=== PATIENT | male | born 1985 | race Caucasian/White ===

== ENCOUNTER 2017-07-24 15:46 | Inpatient (IN) | payer OTHER ==
--- NOTE | 2017-07-24 17:33 | HP ---
COWS - Scale Resting Pulse: 0= [place] 80 or Below Sweatin= Chills/Flushing Restless Observation: 0= Sits Still Pupil Size: 0= Normal to Room Light Bone or Joint Aches: 2= Severe Diffuse Aches Runny Nose/ Eye Tearin= Runny Nose/Eyes GI Upset > 30mins: 2= Nausea/Diarrhea Tremor Observation: 2= Slight Tremor Visible Yawning Observation: 0= None Anxiety or Irritability: 2=Irritable/Anxious Goose Flesh Skin: 3=Piloerection COWS Score: 14 Admission ROS S - HPI Chief Complaint: withdrawal sx Allergies/Adverse Reactions: Allergies Allergy/AdvReac Type Severity Reaction Status Date / Time No Known Allergies Allergy Verified 07/24/17 17:34 History of Present Illness: 32 years old male with long history of heroin nicotine dependence has bipolar ii is admitted to detox Exam Limitations: No Limitations - Ebola screening Have you traveled outside of the country in the last 21 days: No Have you had contact with anyone from an Ebola affected area: No Have you been sick,other than usual withdrawal symptoms: No Do you have a fever: No - Review of Systems Constitutional: Changes in sleep, Weight Stable EENT: reports: No Symptoms Reported Respiratory: reports: No Symptoms reported Cardiac: reports: No Symptoms Reported GI: reports: Nausea, Poor Fluid Intake, Abdominal cramping : reports: No Symptoms Reported Musculoskeletal: reports: Back Pain, Joint Pain, Muscle Pain, Neck Pain Integumentary: reports: No Symptoms Reported Neuro: reports: Tremors Endocrine: reports: No Symptoms Reported Hematology: reports: No Symptoms Reported Psychiatric: reports: Judgement Intact, Orientated x3, Anxious, Depressed Other Systems: Reviewed and Negative Patient History - Patient Medical History Hx Anemia: No Hx Asthma: No Hx Chronic Obstructive Pulmonary Disease (COPD): No Hx Cancer: No Hx Cardiac Disorders: No Hx Congestive Heart Failure: No Hx Hypertension: No Hx Hypercholesterolemia: No Hx Pacemaker: No HX Cerebrovascular Accident: No Hx Seizures: No Hx Dementia: No Hx Diabetes: No Hx Gastrointestinal Disorders: No Hx Liver Disease: No Hx Genitourinary Disorders: No Hx Sexually Transmitted Disorders: No Hx Renal Disease (ESRD): No Hx Thyroid Disease: No Hx Human Immunodeficiency Virus (HIV): No Hx Hepatitis C: No Hx Depression: No Hx Suicide Attempt: No Hx Bipolar Disorder: Yes Hx Schizophrenia: No - Patient Surgical History Past Surgical History: Yes Hx Neurologic Surgery: No Hx Cataract Extraction: No Hx Cardiac Surgery: No Hx Lung Surgery: No Hx Breast Surgery: No Hx Breast Biopsy: No Hx Abdominal Surgery: No Hx Appendectomy: No Hx Cholecystectomy: No Hx Genitourinary Surgery: No Hx Orthopedic Surgery: Yes Other Surgical History: nasal bridge fx 2014 Anesthesia Reaction: No - PPD History Previous Implant?: Yes Documented Results: Negative w/o proof Implanted On Prior [facility] Admission?: No PPD to be Administered?: Yes - Smoking Cessation Smoking history: Current every day smoker Have you smoked in the past 12 months: Yes Aproximately how many cigarettes per day: 10 Cigars Per Day: 0 Hx Chewing Tobacco Use: No Initiated information on smoking cessation: Yes 'Breaking Loose' booklet given: 07/24/17 - Substance & Tx. History Hx Alcohol Use: No Hx Substance Use: Yes Substance Use Type: Heroin, Opiates, Tranquilizers - Substances Abused Benzodiazepine (Klonopin) Route: Oral Frequency: Daily Amount used: 4 mg Age of first use: 32 Date of Last Use: 07/24/17 Family Disease History - Family Disease History Family Disease History: Other: Father (seizure), Brother (no brother), Sister Admission Physical Exam S - Physical General Appearance: Yes: Nourished, Appropriately Dressed, Mild Distress, Tremorous, Irritable, Sweating, Anxious HEENTM: Yes: Normal ENT Inspection, Normocephalic, Normal Voice Respiratory: Yes: Chest Non-Tender, Lungs Clear, Normal Breath Sounds, No Respiratory Distress, No Accessory Muscle Use Neck: Yes: Supple, Trachea in good position Breast: Yes: Breasts Symetrical Cardiology: Yes: Regular Rhythm, S1, S2, Bradycardia Abdominal: Yes: Normal Bowel Sounds, Non Tender, Soft Genitourinary: Yes: Within Normal Limits Back: Yes: Normal Inspection Musculoskeletal: Yes: full range of Motion, Gait Steady, Back pain, Muscle Pain Extremities: Yes: Normal Inspection, Normal Range of Motion, Non-Tender, Tremors Neurological: Yes: Fully Oriented, Alert, Motor Strength 5/5, Normal Response, Depressed Affect Integumentary: Yes: Warm Lymphatic: Yes: Within Normal Limits - Diagnostic (1) Opioid dependence with withdrawal Current Visit: Yes Status: Acute (2) Nicotine dependence Current Visit: Yes Status: Acute Qualifiers: Nicotine product type: cigarettes Substance use status: in withdrawal Qualified Code(s): F17.213 - Nicotine dependence, cigarettes, with withdrawal (3) Muscle spasm Current Visit: Yes Status: Chronic Cleared for Admission [facility] - Detox or Rehab [facility] Level of Care: Medically Managed Detox Regimen/Protocol: Methadone Vital Signs - Vital Signs Vital Signs Refused: No Temperature: 97.1 F Temperature Source: Oral Pulse Rate: 56 Respiratory Rate: 20 Blood Pressure: 102/58 BP Location: Left Arm Blood Pressure Position: Sitting - Height Height: 6 ft - Weight Weight: 197 lb Weight Measurement Method: Standing Scale Body Mass Index (BMI): 26.7 - Bowel Function Bowel Movement: No Urine Drug Screen - Control Is Test Valid: Yes - Results Drug Screen Negative: No Urine Drug Screen Results: OPI-Opiates, BZO-Benzodiazepines, MTD-Methadone, TCA- Tricyclic Antidepress
[2017-07-24] MEDS ORDERED: MAGNESIUM CITRATE 300 ML BOTTLE PO PRN (17:36)
[2017-07-24] MEDS ORDERED: MAGNESIUM HYDROX 2400MG/30ML ORAL SUSPENSION 30 ML CUP PO PRN (17:36)
[2017-07-24] MEDS ORDERED: ACETAMINOPHEN 325 MG TABLET (FP) PO PRN (17:36)
[2017-07-24] MEDS ORDERED: NICOTINE 14 MG/24 HOURS TOPICAL PATCH TD PRN (17:36)
[2017-07-24] MEDS ORDERED: P-EPHED 60MG/TRIPROLIDI 2.5MG TABLET PO PRN (17:36)
[2017-07-24] MEDS ORDERED: MAG HYDROX/AL HYDROX/SIMETH 30 ML UNIT-DOSE CUP PO PRN (17:36)
[2017-07-24] MEDS ORDERED: guaiFENesin/D-METHORPHAN HB 10 ML UNIT-DOSE CUPS PO PRN (17:36)
[2017-07-24] MEDS ORDERED: NICOTINE POLACRILEX 2 MG GUM BUC PRN (17:36)
[2017-07-24] MEDS ORDERED: METHADONE HCL 10 MG TABLET (FOR DETOX USE ONLY) PO ONE ×2 (17:36→23:00)
[2017-07-24] MEDS ORDERED: MENTHOL/PHENOL 1 EACH UD MM PRN (17:36)
[2017-07-24] MEDS ORDERED: LOPERAMIDE HCL 2 MG CAPSULE PO PRN (17:36)
[2017-07-24 17:55] VITALS: BMI 26.7
[2017-07-24] MEDS ORDERED: METHADONE HCL 10 MG TABLET (FOR DETOX USE ONLY) ONE (21:46)
[2017-07-25] MEDS: THIAMINE HCL 100 MG TABLET (FP) PO SCH ×2 (00:17→22:16)
[2017-07-25] MEDS ORDERED: METHADONE HCL 10 MG TABLET (FOR DETOX USE ONLY) PO ONE (10:00)
[2017-07-25 10:14] LABS: MCH 27.9 pg (25.7-33.7); MCHC 32.5 g/dl (32.0-35.9); MEAN CELL VOLUME 85.7 fl (80-96); MEAN PLT VOLUME 8.8 fl (7.5-11.1); PLATELET COUNT 244 K/MM3 (134-434); RDW 15.5 % (11.9-15.9); WHITE BLOOD COUNT 7.1 K/mm3 (4.0-10.0)
[2017-07-25] MEDS: PRENATAL VITAMINS W/ FOLIC ACID TABLET (FP) PO SCH (10:33)
[2017-07-25] MEDS: diazePAM 5 MG TABLET PO PRN ×3 (10:33→22:16)
[2017-07-25 11:13] LABS: ALBUMIN 3.4 g/dl (3.4-5.0); ANION GAP 9 (8-16); BILIRUBIN,TOTAL 0.2 mg/dL (0.2-1.0); CALCIUM 8.3 mg/dL (8.5-10.1); CO2 25 mmol/L (21-32); CREATININE 1.1 mg/dL (0.7-1.3); GLUCOSE,RANDOM 96 mg/dL (74-106); SGOT/AST 15 U/L (15-37); SGPT/ALT 28 U/L (12-78)
[2017-07-25 11:14] LABS: ALK PHOS 107 U/L (45-117); TOT PROT 6.8 g/dl (6.4-8.2)
--- NOTE | 2017-07-25 13:47 | PN ---
[facility] COWS - Scale Resting Pulse: 0= [place] 80 or Below Sweatin= Chills/Flushing Restless Observation: 3= Extraneous Movement Pupil Size: 1= Pupils >than Normal Bone or Joint Aches: 2= Severe Diffuse Aches Runny Nose/ Eye Tearin= Runny Nose/Eyes GI Upset > 30mins: 2= Nausea/Diarrhea Tremor Observation of Outstretched Hands: 2= Slight Tremor Visible Yawning Observation: 1= 1-2x During Session Anxiety or Irritability: 2=Irritable/Anxious Goose Flesh Skin: 0=Smooth Skin COWS Score: 16 S Progress Note (SOAP) Subjective: alert,irritable,anxious,interrupted sleep,tremor,pain in the body and back Objective: 07/25/17 13:43 Vital Signs Temperature 97.0 F L 07/25/17 10:32 Pulse Rate 44 L 07/25/17 10:32 Respiratory Rate 18 07/25/17 10:32 Blood Pressure 92/52 07/25/17 10:32 O2 Sat by Pulse Oximetry (%) ekg sinus bradycadia 31/min repeat ekg on 07/25/17 sinus bradycardia 37/min no chest pain,no sob,no dizziness Assessment: 07/25/17 13:45 Laboratory Last Values WBC 7.1 K/mm3 (4.0-10.0) 07/25/17 07:40 RBC 4.80 M/mm3 (4.00-5.60) 07/25/17 07:40 Hgb 13.4 GM/dL (11.7-16.9) 07/25/17 07:40 Hct 41.1 % (35.4-49) 07/25/17 07:40 MCV 85.7 fl (80-96) 07/25/17 07:40 MCH 27.9 pg (25.7-33.7) 07/25/17 07:40 MCHC 32.5 g/dl (32.0-35.9) 07/25/17 07:40 RDW 15.5 % (11.9-15.9) 07/25/17 07:40 Plt Count 244 K/MM3 (134-434) 07/25/17 07:40 MPV 8.8 fl (7.5-11.1) 07/25/17 07:40 Sodium 143 mmol/L (136-145) 07/25/17 07:40 Potassium 4.5 mmol/L (3.5-5.1) 07/25/17 07:40 Chloride 109 mmol/L (98-107) H 07/25/17 07:40 Carbon Dioxide 25 mmol/L (21-32) 07/25/17 07:40 Anion Gap 9 (8-16) 07/25/17 07:40 BUN 13 mg/dL (7-18) 07/25/17 07:40 Creatinine 1.1 mg/dL (0.7-1.3) 07/25/17 07:40 Creat Clearance w eGFR > 60 (>60) 07/25/17 07:40 Random Glucose 96 mg/dL (74-106) 07/25/17 07:40 Calcium 8.3 mg/dL (8.5-10.1) L 07/25/17 07:40 Total Bilirubin 0.2 mg/dL (0.2-1.0) 07/25/17 07:40 AST 15 U/L (15-37) 07/25/17 07:40 ALT 28 U/L (12-78) 07/25/17 07:40 Alkaline Phosphatase 107 U/L (45-117) 07/25/17 07:40 Total Protein 6.8 g/dl (6.4-8.2) 07/25/17 07:40 Albumin 3.4 g/dl (3.4-5.0) 07/25/17 07:40 RPR Titer Nonreactive (NONREACTIVE) 07/25/17 07:40 07/25/17 13:46 withdrawal symptom Plan: continue detox,monitoring of bradycardia,vital signs monitoring
--- NOTE | 2017-07-25 14:02 | CONSULT ---
[facility] Psychiatric Consult - Data Date of interview: 07/25/17 Admission source: [facility] Identifying data: First admission to [facility] for this 32 y/o [place]-born male seeking detoxification treatment for opioid and benzodiazepine dependence.Patient is single without children,domiciled,unemployed and supported by his relatives. Substance Abuse History: Discussed with patient in this interview.Mr Egan corroborates the following [facility] report. Smoking history: Current every day smoker. Have you smoked in the past 12 months: Yes. Aproximately how many cigarettes per day: 10. Cigars Per Day: 0. Hx Chewing Tobacco Use: No. Initiated information on smoking cessation: Yes. 'Breaking Loose' booklet given : 07/24/17. - Substance & Tx. History. Hx Alcohol Use: No. Hx Substance Use: Yes. Substance Use Type: Heroin, Opiates, Tranquilizers. - Substances Abused. Benzodiazepine (Klonopin). Route: Oral. Frequency: Daily. Amount used: 4 mg. Age of first use: 32. Date of Last Use: 07/24/17 Medical History: Patient endorses good general health. Psychiatric History: Patient reports a history of multiple psychiatric hospitalizations ([facility]).Diagnosed with Bipolar Disorder.Mr Egan indicates that he is currently under the care of Dr Aminta Wilkinson at a clinic in [facility].Prescribed zoloft 150 mg/day + trileptal 300 mg po bid (confirmed by pharmacy claims of 07/20/17 at [facility]).Patient denies history of suicide attempts. Physical/Sexual Abuse/Trauma History: Patient denies history of abuse. Additional Comment: Urine Drug Screen Results: OPI-Opiates, BZO-Benzodiazepines , MTD-Methadone, TCA-Tricyclic Antidepressant.Noted. Mental Status Exam - Mental Status Exam Alert and Oriented to: Time, Place, Person Cognitive Function: Good Patient Appearance: Unkempt, Disheveled Mood: Nervous, Withdrawn, Anxious Affect: Mood Congruent Patient Behavior: Fatigued, Talkative, Cooperative Speech Pattern: Clear, Excessive Voice Loudness: Normal Thought Process: Goal Oriented Thought Disorder: Bizarre Hallucinations: Denies Suicidal Ideation: Denies Homicidal Ideation: Denies Insight/Judgement: Poor Sleep: Well Appetite: Good Muscle strength/Tone: Normal Gait/Station: Normal Psychiatric Findings - Problem List ([place] 1, 2,3) (1) Opioid dependence with withdrawal Current Visit: Yes Status: Acute (2) Nicotine dependence Current Visit: Yes Status: Acute Qualifiers: Nicotine product type: cigarettes Substance use status: uncomplicated Qualified Code(s): F17.210 - Nicotine dependence, cigarettes, uncomplicated (3) Bipolar disorder Current Visit: Yes Status: Chronic - Initial Treatment Plan Initial Treatment Plan: Psychoeducation.Detoxification.Will hold sertraline and trileptal at this time.Reason : bradycardia.Patient is made aware of this careplan.Agrees.Observation.
[2017-07-25] MEDS: BACLOFEN 10 MG TABLET (FP) PO PRN ×2 (15:08→22:16)
--- NOTE | 2017-07-25 16:01 | EKG ---
Test Reason : Blood Pressure : / mmHG Vent. Rate : 037 BPM Atrial Rate : 037 BPM P-R Int : 194 ms QRS Dur : 102 ms QT Int : 494 ms P-R-T Axes : 043 046 039 degrees QTc Int : 387 ms MARKED SINUS BRADYCARDIA ABNORMAL ECG WHEN COMPARED WITH ECG OF 24-JUL-2017 21:34, NO SIGNIFICANT CHANGE WAS FOUND REPEAT EKG IF CLINICALLY INDICATED Confirmed by JUS DAO MD ([id number]) on 07/25/2017 4:00:41 PM Referred By: Confirmed By:JUS DAO MD
--- NOTE | 2017-07-25 16:30 | EKG ---
Test Reason : Blood Pressure : / mmHG Vent. Rate : 031 BPM Atrial Rate : 031 BPM P-R Int : 202 ms QRS Dur : 092 ms QT Int : 524 ms P-R-T Axes : 048 046 039 degrees QTc Int : 376 ms MARKED SINUS BRADYCARDIA POSSIBLE LEFT ATRIAL ENLARGEMENT U WAVES IN SELECTED LEADS, ELECTROLYTE AND OR METOBOLIC INBALANCE NEEDS TO BE EXCLUDED ABNORMAL ECG NO PREVIOUS ECGS AVAILABLE F/U EKG IS RECOMMENDED Confirmed by JUS DAO MD ([id number]) on 07/25/2017 4:30:15 PM Referred By: Confirmed By:JUS DAO MD
[2017-07-26] MEDS: diazePAM 5 MG TABLET PO PRN ×5 (05:41→22:13)
[2017-07-26] MEDS: BACLOFEN 10 MG TABLET (FP) PO PRN ×2 (09:03→17:39)
[2017-07-26] MEDS ORDERED: METHADONE HCL 5 MG TABLET (FOR DETOX USE ONLY) PO ONE (10:00)
[2017-07-26] MEDS: PRENATAL VITAMINS W/ FOLIC ACID TABLET (FP) PO SCH (10:20)
--- NOTE | 2017-07-26 10:44 | PN ---
S COWS - Scale Resting Pulse: 0= [place] 80 or Below Sweatin= Chills/Flushing Restless Observation: 3= Extraneous Movement Pupil Size: 1= Pupils >than Normal Bone or Joint Aches: 2= Severe Diffuse Aches Runny Nose/ Eye Tearin= Runny Nose/Eyes GI Upset > 30mins: 2= Nausea/Diarrhea Tremor Observation of Outstretched Hands: 2= Slight Tremor Visible Yawning Observation: 1= 1-2x During Session Anxiety or Irritability: 2=Irritable/Anxious Goose Flesh Skin: 0=Smooth Skin COWS Score: 16 S Progress Note (SOAP) Subjective: alert,irritable,anxious,interrupted sleep,tremor,pain in the body and back Objective: 07/26/17 10:42 Vital Signs Temperature 97 F L 07/26/17 10:28 Pulse Rate 65 07/26/17 10:28 Respiratory Rate 16 07/26/17 10:28 Blood Pressure 102/70 07/26/17 10:28 O2 Sat by Pulse Oximetry (%) 07/25/17 07:40 Sodium 143 Potassium 4.5 Chloride 109 H Carbon Dioxide 25 Anion Gap 9 BUN 13 Creatinine 1.1 07/26/17 10:43 Laboratory Last Values WBC 7.1 K/mm3 (4.0-10.0) 07/25/17 07:40 RBC 4.80 M/mm3 (4.00-5.60) 07/25/17 07:40 Hgb 13.4 GM/dL (11.7-16.9) 07/25/17 07:40 Hct 41.1 % (35.4-49) 07/25/17 07:40 MCV 85.7 fl (80-96) 07/25/17 07:40 MCH 27.9 pg (25.7-33.7) 07/25/17 07:40 MCHC 32.5 g/dl (32.0-35.9) 07/25/17 07:40 RDW 15.5 % (11.9-15.9) 07/25/17 07:40 Plt Count 244 K/MM3 (134-434) 07/25/17 07:40 MPV 8.8 fl (7.5-11.1) 07/25/17 07:40 Sodium 143 mmol/L (136-145) 07/25/17 07:40 Potassium 4.5 mmol/L (3.5-5.1) 07/25/17 07:40 Chloride 109 mmol/L (98-107) H 07/25/17 07:40 Carbon Dioxide 25 mmol/L (21-32) 07/25/17 07:40 Anion Gap 9 (8-16) 07/25/17 07:40 BUN 13 mg/dL (7-18) 07/25/17 07:40 Creatinine 1.1 mg/dL (0.7-1.3) 07/25/17 07:40 Creat Clearance w eGFR > 60 (>60) 07/25/17 07:40 Random Glucose 96 mg/dL (74-106) 07/25/17 07:40 Calcium 8.3 mg/dL (8.5-10.1) L 07/25/17 07:40 Total Bilirubin 0.2 mg/dL (0.2-1.0) 07/25/17 07:40 AST 15 U/L (15-37) 07/25/17 07:40 ALT 28 U/L (12-78) 07/25/17 07:40 Alkaline Phosphatase 107 U/L (45-117) 07/25/17 07:40 Total Protein 6.8 g/dl (6.4-8.2) 07/25/17 07:40 Albumin 3.4 g/dl (3.4-5.0) 07/25/17 07:40 RPR Titer Nonreactive (NONREACTIVE) 07/25/17 07:40 Assessment: 07/26/17 10:44 withdrawal symptom Plan: continue detox
[2017-07-26 11:29] LABS: URINE APPEARANCE CLEAR; URINE BILIRUBIN NEGATIVE (NEGATIVE); URINE BLOOD NEGATIVE (NEGATIVE); URINE COLOR LTYELLOW; URINE GLUCOSE (UA) NEGATIVE (NEGATIVE); URINE KETONE NEGATIVE (NEGATIVE); URINE NITRITE NEGATIVE (NEGATIVE); URINE PROTEIN NEGATIVE (NEGATIVE); URINE UROBILINOGEN NEGATIVE mg/dL (0.2-1.0)
[2017-07-26 18:19] LABS: URINE LEUK ESTERASE Negative (NEGATIVE)
[2017-07-26] MEDS: THIAMINE HCL 100 MG TABLET (FP) PO SCH (22:11)
[2017-07-27] MEDS: diazePAM 5 MG TABLET PO PRN ×3 (03:00→14:25)
[2017-07-27] MEDS ORDERED: METHADONE HCL 5 MG TABLET (FOR DETOX USE ONLY) PO ONE (10:00)
--- NOTE | 2017-07-27 10:04 | PN ---
[facility] Progress Note (SOAP) Subjective: irritable agitation I need my psych medication sweats my heart rate has always been on the slow side. 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 Objective: 07/27/17 10:02 Vital Signs Temperature 97.0 F L 07/27/17 09:42 Pulse Rate 41 L 07/27/17 09:42 Respiratory Rate 16 07/27/17 09:42 Blood Pressure 117/68 07/27/17 09:42 O2 Sat by Pulse Oximetry (%) Laboratory Tests 07/25/17 07/25/17 07/25/17 07:40 07:40 07:40 WBC 7.1 RBC 4.80 Hgb 13.4 Hct 41.1 MCV 85.7 MCH 27.9 MCHC 32.5 RDW 15.5 Plt Count 244 MPV 8.8 Sodium 143 Potassium 4.5 Chloride 109 H Carbon Dioxide 25 Anion Gap 9 BUN 13 Creatinine 1.1 Creat Clearance w eGFR > 60 Random Glucose 96 Calcium 8.3 L Total Bilirubin 0.2 AST 15 ALT 28 Alkaline Phosphatase 107 Total Protein 6.8 Albumin 3.4 Urine Color Urine Appearance Urine pH Ur Specific [place] Urine Protein Urine Glucose (UA) Urine Ketones Urine Blood Urine Nitrite Urine Bilirubin Urine Urobilinogen Ur Leukocyte Esterase RPR Titer Nonreactive 07/26/17 10:10 WBC RBC Hgb Hct MCV MCH MCHC RDW Plt Count MPV Sodium Potassium Chloride Carbon Dioxide Anion Gap BUN Creatinine Creat Clearance w eGFR Random Glucose Calcium Total Bilirubin AST ALT Alkaline Phosphatase Total Protein Albumin Urine Color Ltyellow Urine Appearance Clear Urine pH 6.0 Ur Specific [place] 1.011 Urine Protein Negative Urine Glucose (UA) Negative Urine Ketones Negative Urine Blood Negative Urine Nitrite Negative Urine Bilirubin Negative Urine Urobilinogen Negative Ur Leukocyte Esterase Negative RPR Titer aaox3 ambulating no acute distress Assessment: 07/27/17 10:03 withdrawal sx Plan: continue detox increase fluids psych re-evaluation orderd
[2017-07-27] MEDS: PRENATAL VITAMINS W/ FOLIC ACID TABLET (FP) PO SCH (10:09)
--- NOTE | 2017-07-27 13:12 | PN ---
Psychiatric Progress Note Vital Signs: Vital Signs Period Temp Pulse Resp BP Sys/Hwang Pulse Ox Last 24 Hr 96.4 F-98 F 41-97 16-20 106-128/62-76 Date of Session: 07/27/17 Chief Complaint:: " I want librium and my other medications." HPI: Day 4 of detoxification treatment for this patient addressing opioid dependence co-morbid with bipolar disorder.Psychiatric follow up is sought for renewal of psychotropic medications (zoloft + oxcarbazepine).These medications were held in view of bradycardia and hypotension. ROS: Unremarkable.No somatic complaints.Patient is alert,fully oriented, ambulatory and always visible on the unit. Current Medications: Active Medications Generic Name Dose Route Start Last Admin Trade Name Freq PRN Reason Stop Dose Admin Acetaminophen 650 mg 07/24/17 17:36 Tylenol - PO Q4H PRN FEVER OR PAIN Al Hydroxide/Mg Hydroxide 30 ml 07/24/17 17:36 Mylanta Oral Suspension - PO Q6H PRN DYSPEPSIA Baclofen 10 mg 07/24/17 17:49 07/26/17 17:39 Lioresal - PO 10 mg Q8H PRN Administration BACK PAIN Diazepam 10 mg 07/24/17 17:36 07/27/17 10:09 Valium - PO 07/27/17 17:35 10 mg Q4H PRN Administration WITHDRAWAL(CONT SUBST) Eucalyptus/Menthol/Phenol/Sorbitol 1 each 07/24/17 17:36 Cepastat Lozenge - MM Q4H PRN SORE THROAT Guaifenesin 10 ml 07/24/17 17:36 Robitussin Dm - PO Q6H PRN COUGH Ibuprofen 400 mg 07/24/17 17:36 Motrin - PO Q6H PRN SEVERE PAIN Loperamide HCl 4 mg 07/24/17 17:36 Imodium - PO Q6H PRN DIARRHEA Magnesium Citrate 300 ml 07/24/17 17:36 Citroma - PO Q48H PRN CONSTIPATION Magnesium Hydroxide 30 ml 07/24/17 17:36 Milk Of Magnesia - PO DAILY PRN CONSTIPATION Methadone HCl 5 mg 07/29/17 06:00 Dolophine - PO 07/29/17 06:01 ONCE@0600 ONE Methadone HCl 10 mg 07/28/17 10:00 Dolophine - PO 07/28/17 10:01 ONCE ONE Nicotine 14 mg 07/24/17 17:36 Nicoderm Patch - TD DAILY PRN WITHDRAWAL(CONT SUBST) Nicotine Polacrilex 2 mg 07/24/17 17:36 Nicorette Gum - BUC Q2H PRN NICOTINE REPLACEMENT RX Oxcarbazepine 300 mg 07/27/17 22:00 Trileptal PO BID BRENDON Multivit/Folic Acid/Iron 1 tab 07/25/17 10:00 07/27/17 10:09 Vitamins (Sjr) - PO 1 tab DAILY BRENDON Administration Pseudoephedrine/Triprolidine 1 combo 07/24/17 17:36 Actifed - PO TID PRN NASAL CONGESTION Thiamine HCl 100 mg 07/24/17 22:00 07/26/17 22:11 Vitamin B1 - PO 100 mg HS BRENDON Administration Medication(s) Change(s): Medications : zoloft 100 mg po daily (authorization, verbally,to this senior writer).Dr Wilkinson is not available but staff confirmed doses of current medications as zoloft 150 mg/day + trileptal 300 mg po bid.Discussed with LILIA Brown. Current Side Effect: No Lab tests ordered: No Lab tests reviewed: Yes (normal electrolytes.) Provider note:: Chart reviewed.EKG revisited : abnormal.Case discussed with referral source,LILIA Tierney.Patient interviewed.Mr Egan is requesting librium in lieu of diazepam." I don't like valium;I prefer librium if I cannot have klonopin." Patient is eager to restart his medications (zoloft).Declines to take trileptal.Found to be irritable and perseverative.He is,however,receptive to teaching and amenable to redirections. Total face to face time:: 35 Mental Status Exam - Mental Status Exam Alert and Oriented to: Time, Place, Person Cognitive Function: Good Patient Appearance: Well Groomed Mood: Irritable Affect: Labile Patient Behavior: Talkative, Cooperative Speech Pattern: Clear Voice Loudness: Normal Thought Process: Goal Oriented Thought Disorder: Not Present Hallucinations: Denies Suicidal Ideation: Denies Homicidal Ideation: Denies Insight/Judgement: Poor Sleep: Poorly, Difficulty falling asleep Appetite: Good Muscle strength/Tone: Normal Gait/Station: Normal Psychiatric Treatment Plan - Problem List (1) Opioid dependence with withdrawal Current Visit: Yes (2) Nicotine dependence Current Visit: Yes Qualifiers: Nicotine product type: cigarettes Substance use status: uncomplicated Qualified Code(s): F17.210 - Nicotine dependence, cigarettes, uncomplicated (3) Bipolar disorder Current Visit: Yes
[2017-07-27] MEDS: hydrOXYzine PAMOATE 50 MG CAPSULE (FP) PO PRN ×2 (18:20→22:06)
[2017-07-27] MEDS: IBUPROFEN 400 MG TABLET (FP) PO PRN (21:02)
[2017-07-27] MEDS ORDERED: OXcarbazepine 300 MG TABLET (UD) PO SCH (22:00)
[2017-07-27] MEDS: THIAMINE HCL 100 MG TABLET (FP) PO SCH (22:05)
[2017-07-27] MEDS: BACLOFEN 10 MG TABLET (FP) PO PRN (22:06)
[2017-07-28] MEDS: hydrOXYzine PAMOATE 50 MG CAPSULE (FP) PO PRN ×5 (02:05→22:20)
--- NOTE | 2017-07-28 09:36 | PN ---
[facility] Progress Note (SOAP) Subjective: irritable i still am waiting for my psych medication and why did they discontinue it? agitation Objective: 07/28/17 09:33 Vital Signs Temperature 98 07/28/17 10:00 Pulse Rate 58 L 07/28/17 10:00 Respiratory Rate 18 07/28/17 10:00 Blood Pressure 117/74 07/28/17 10:00 O2 Sat by Pulse Oximetry (%) aaox3 ambulating no acute distress Assessment: 07/28/17 09:38 withdrawal sx Plan: continue detox increase fluids psych ordered for re-evaluation on his medication d/c in am
[2017-07-28] MEDS ORDERED: SERTRALINE HCL 50 MG TABLET (FP) PO SCH (10:00)
[2017-07-28] MEDS ORDERED: METHADONE HCL 10 MG TABLET (FOR DETOX USE ONLY) PO ONE (10:00)
[2017-07-28] MEDS: BACLOFEN 10 MG TABLET (FP) PO PRN ×2 (10:12→22:19)
[2017-07-28] MEDS: PRENATAL VITAMINS W/ FOLIC ACID TABLET (FP) PO SCH (10:12)
[2017-07-28] MEDS: IBUPROFEN 400 MG TABLET (FP) PO PRN (16:49)
--- NOTE | 2017-07-28 17:16 | PN ---
Psychiatric Progress Note Vital Signs: Vital Signs Period Temp Pulse Resp BP Sys/Hwang Pulse Ox Last 24 Hr 95.4 F-98 F 41-108 18-20 98-157/61-74 Date of Session: 07/28/17 Chief Complaint:: " I need my psychiatric medications." HPI: Patient is reported for intermittent episodes of angry/impulsive behavior.Mr Egan is described as argumentative with staff over the issue of trileptal and sertraline.Medications were placed on hold due to bradycardia ( unexplained). ROS: Unremarkable at time of this examination.Patient is calm,appropriate and apologetic.Cognitively intact.Ambulatory and visible on the unit. Current Medications: Active Medications Generic Name Dose Route Start Last Admin Trade Name Freq PRN Reason Stop Dose Admin Acetaminophen 650 mg 07/24/17 17:36 Tylenol - PO Q4H PRN FEVER OR PAIN Al Hydroxide/Mg Hydroxide 30 ml 07/24/17 17:36 Mylanta Oral Suspension - PO Q6H PRN DYSPEPSIA Baclofen 10 mg 07/24/17 17:49 07/28/17 10:12 Lioresal - PO 10 mg Q8H PRN Administration BACK PAIN Eucalyptus/Menthol/Phenol/Sorbitol 1 each 07/24/17 17:36 Cepastat Lozenge - MM Q4H PRN SORE THROAT Guaifenesin 10 ml 07/24/17 17:36 Robitussin Dm - PO Q6H PRN COUGH Hydroxyzine Pamoate 50 mg 07/27/17 17:13 07/28/17 14:51 Vistaril - PO 50 mg Q4H PRN Administration FOR ITCHING Ibuprofen 400 mg 07/24/17 17:36 07/28/17 16:49 Motrin - PO 400 mg Q6H PRN Administration SEVERE PAIN Loperamide HCl 4 mg 07/24/17 17:36 Imodium - PO Q6H PRN DIARRHEA Magnesium Citrate 300 ml 07/24/17 17:36 Citroma - PO Q48H PRN CONSTIPATION Magnesium Hydroxide 30 ml 07/24/17 17:36 Milk Of Magnesia - PO DAILY PRN CONSTIPATION Methadone HCl 5 mg 07/29/17 06:00 Dolophine - PO 07/29/17 06:01 ONCE@0600 ONE Nicotine 14 mg 07/24/17 17:36 Nicoderm Patch - TD DAILY PRN WITHDRAWAL(CONT SUBST) Nicotine Polacrilex 2 mg 07/24/17 17:36 Nicorette Gum - BUC Q2H PRN NICOTINE REPLACEMENT RX Multivit/Folic Acid/Iron 1 tab 07/25/17 10:00 07/28/17 10:12 Vitamins (Sjr) - PO 1 tab DAILY BRENDON Administration Pseudoephedrine/Triprolidine 1 combo 07/24/17 17:36 Actifed - PO TID PRN NASAL CONGESTION Sertraline HCl 150 mg 07/28/17 10:00 07/28/17 10:12 Zoloft - PO 150 mg DAILY BRENDON Administration Thiamine HCl 100 mg 07/24/17 22:00 07/27/17 22:05 Vitamin B1 - PO 100 mg HS BRENDON Administration Medication(s) Change(s): Currently on zoloft 150 mg po daily. Electrolytes are normal but trileptal is still witheld in view of its potential for causing bradycardia.Contact was established,on 07/27/17,with Dr Wilkinson at for collateral information : no prior history of cardiopathy as per patient 's pychiatrist.Mr Egan reports that " zoloft is my main medication ; it helped me function ; trileptal was recently added to my regimen ; I never had heart problems." Patient disagrees with the proposed option of a switch to an alternate mood stabilizer.He idicates that he will discuss the matter with his psychiatrist,Dr Wilkinson. Current Side Effect: Yes (bradycardia of unknown etiology.) Lab tests ordered: No Lab tests reviewed: Yes Provider note:: Case discussed in the morning with [facility] Rissa Brown.Chart reviewed.Medications revisited.Discussed with patient.Mr Egan is attentive to explanations and he expresses his understanding about the need for caution.He is ,however,refractory to the idea of switching to another mood stabilizer ( valproate,lithium,topiramate).Comfortable with sertraline.No clinical evidence of juan or hypomania.Patient shows ability to maintain impulse control.No complaint of suicidal or homicidal ideation,intent or plan.Patient is agreable to the plan for transition to rehabilitation care and,if no bed available,he indicates his flexibility to accept discharge home + referral to Dr Wilkinson's O[facility] care.Stable mental status. Total face to face time:: 35 Mental Status Exam - Mental Status Exam Alert and Oriented to: Time, Place, Person Cognitive Function: Good Patient Appearance: Well Groomed Mood: Anxious Affect: Mood Congruent Patient Behavior: Appropriate, Cooperative Speech Pattern: Clear, Appropriate Voice Loudness: Normal Thought Process: Goal Oriented Thought Disorder: Not Present Hallucinations: Denies Suicidal Ideation: Denies Homicidal Ideation: Denies Insight/Judgement: Fair Sleep: Poorly, Difficulty falling asleep Appetite: Good Muscle strength/Tone: Normal Gait/Station: Normal Psychiatric Treatment Plan - Problem List (1) Opioid dependence with withdrawal Current Visit: Yes (2) Nicotine dependence Current Visit: Yes Qualifiers: Nicotine product type: cigarettes Substance use status: uncomplicated Qualified Code(s): F17.210 - Nicotine dependence, cigarettes, uncomplicated (3) Bipolar disorder Current Visit: Yes
[2017-07-28] MEDS: THIAMINE HCL 100 MG TABLET (FP) PO SCH (22:17)
[2017-07-29] MEDS ORDERED: METHADONE HCL 5 MG TABLET (FOR DETOX USE ONLY) PO ONE (06:00)
[2017-07-29 06:26] VITALS: BP 123/64; PULSE 51; TEMP 98.3
[2017-07-29] MEDS: hydrOXYzine PAMOATE 50 MG CAPSULE (FP) PO PRN (07:26)
[2017-07-29] MEDS: IBUPROFEN 400 MG TABLET (FP) PO PRN (07:26)
--- NOTE | 2017-07-29 08:42 | DS ---
[facility] Detox Discharge Summary Admission Date: 07/24/17 Discharge Date: 07/29/17 - History Present History: Opioid Dependence - Physical Exam Results Vital Signs: Vital Signs Temperature 98.3 F 07/29/17 06:26 Pulse Rate 51 L 07/29/17 06:26 Respiratory Rate 16 07/29/17 06:26 Blood Pressure 123/64 07/29/17 06:26 O2 Sat by Pulse Oximetry (%) - Treatment Hospital Course: Detox Protocol Followed, Detoxed Safely, Responded well, Discharged Condition Good, Rehab Referral Accepted - Medication Discharge Medications: Ambulatory Orders Clonazepam [Klonopin -] 2 mg PO BID 07/24/17 Sertraline HCl [Zoloft -] 100 mg PO DAILY 07/24/17 - Diagnosis (1) Bradycardia Current Visit: Yes Status: Chronic (2) Nicotine dependence Current Visit: Yes Status: Chronic Qualifiers: Nicotine product type: cigarettes Substance use status: uncomplicated Qualified Code(s): F17.210 - Nicotine dependence, cigarettes, uncomplicated (3) Opioid dependence with withdrawal Current Visit: Yes Status: Chronic (4) Bipolar disorder Current Visit: Yes Status: Chronic (5) Muscle spasm Current Visit: Yes Status: Chronic - AMA Did Patient Leave Against Medical Advice: No (going to [facility])
== END 2017-07-29 08:50 | disposition home or self-care (01) | DRG 773 ==
LOC: YASAS 15:46 → Y6N 19:33
PROVIDERS: ADMIT Internal Medicine; ATTEND Internal Medicine
PROC: HZ2ZZZZ Detoxification Services for Substance Abuse Treatment (ICD-10-PCS; principal; 2017-07-24)
DX: F11.23 Opioid dependence with withdrawal (principal); F17.210 Nicotine dependence, cigarettes, uncomplicated; F31.9 Bipolar disorder, unspecified; R00.1 Bradycardia, unspecified; M62.838 Other muscle spasm
CPT/HCPCS: 36415; 71020-TC; 80053; 81003; 85027; 86593; 93005; 93010; J0475

== ENCOUNTER 2018-07-05 17:50 | Inpatient (IN) | payer OTHER ==
[2018-07-05 19:43] VITALS: BMI 22.4
--- NOTE | 2018-07-06 00:20 | HP ---
COWS - Scale Resting Pulse: 2= RI 101-120 Sweatin=Flushed/Facial Moisture Restless Observation: 1= Difficult to Sit Still Pupil Size: 1= Pupils >than Normal Bone or Joint Aches: 4=Acute Joint/Muscle Pain Runny Nose/ Eye Tearin= Nasal Congestion GI Upset > 30mins: 3= Vomiting/Diarrhea (vomiting x 2, diarrhea x 1) Tremor Observation: 4= Gross Tremor/Twitching Yawning Observation: 0= None Anxiety or Irritability: 2=Irritable/Anxious Goose Flesh Skin: 0=Smooth Skin COWS Score: 20 CIWA Score - CIWA Score Nausea/Vomitin Muscle Tremors: 3 Anxiety: 4-Mod. Anxious/Guarded Agitation: 4-Moderately Restless Paroxysmal Sweats: 1-Minimal Palms Moist Orientation: 1-Uncertain about Date Tacttile Disturbances: 0-None Auditory Disturbances: 0-None Visual Disturbances: 0-None Headache: 3-Moderate CIWA-Ar Total Score: 19 Admission ROS BHS - HPI Chief Complaint: Heroin and benzodiazepine withdrawal symptoms Allergies/Adverse Reactions: Allergies Allergy/AdvReac Type Severity Reaction Status Date / Time No Known Allergies Allergy Verified 07/05/18 22:19 History of Present Illness: 33 years old male with 4 years history of heroin and benzodiazepine dependence is seeking admission to detox. Patient has been in previous detox at [facility] and reports a year of sobriety. He reports history of depression and anxiety. He denies suicide attempt or suicidal ideation at this time. Exam Limitations: No Limitations - Ebola screening Have you traveled outside of the country in the last 21 days: No (N) Have you had contact with anyone from an Ebola affected area: No Have you been sick,other than usual withdrawal symptoms: No Do you have a fever: No - Review of Systems Constitutional: Chills, Loss of Appetite, Malaise, Changes in sleep EENT: reports: No Symptoms Reported Respiratory: reports: No Symptoms reported Cardiac: reports: No Symptoms Reported GI: reports: Diarrhea, Poor Appetite, Poor Fluid Intake, Vomiting, Abdominal cramping : reports: No Symptoms Reported Musculoskeletal: reports: Back Pain, Muscle Pain Integumentary: reports: Dryness Neuro: reports: Tremors Endocrine: reports: No Symptoms Reported Hematology: reports: No Symptoms Reported Psychiatric: reports: Anxious, Depressed Other Systems: Reviewed and Negative Patient History - Patient Medical History Hx Anemia: No Hx Asthma: No Hx Chronic Obstructive Pulmonary Disease (COPD): No Hx Cancer: No Hx Cardiac Disorders: No Hx Congestive Heart Failure: No Hx Hypertension: No Hx Hypercholesterolemia: No Hx Pacemaker: No HX Cerebrovascular Accident: No Hx Seizures: No Hx Dementia: No Hx Diabetes: No Hx Gastrointestinal Disorders: No Hx Liver Disease: No Hx Genitourinary Disorders: No Hx Sexually Transmitted Disorders: No Hx Renal Disease (ESRD): No Hx Thyroid Disease: No Hx Human Immunodeficiency Virus (HIV): No Hx Hepatitis C: No Hx Depression: Yes (Not on medication) Hx Suicide Attempt: No Hx Bipolar Disorder: Yes Hx Schizophrenia: No Other Medical History: Anxiety - Not on medication - Patient Surgical History Past Surgical History: Yes Hx Neurologic Surgery: No Hx Cataract Extraction: No Hx Cardiac Surgery: No Hx Lung Surgery: No Hx Breast Surgery: No Hx Breast Biopsy: No Hx Abdominal Surgery: No Hx Appendectomy: No Hx Cholecystectomy: No Hx Genitourinary Surgery: No Hx Orthopedic Surgery: Yes Other Surgical History: nasal bridge fx 2014 Anesthesia Reaction: No - PPD History Previous Implant?: Yes Documented Results: Negative w/proof Date: 07/28/17 PPD to be Administered?: Yes - Reproductive History Patient is a Female of Child Bearing Age (11 -55 yrs old): No (Male) - Smoking Cessation Smoking history: Current every day smoker Have you smoked in the past 12 months: Yes Aproximately how many cigarettes per day: 10 Cigars Per Day: 0 Hx Chewing Tobacco Use: No Initiated information on smoking cessation: Yes 'Breaking Loose' booklet given: 07/06/18 - Substance & Tx. History Hx Alcohol Use: No Hx Substance Use: Yes Substance Use Type: Heroin Hx Substance Use Treatment: Yes ([facility]) - Substances Abused Heroin Route: Inhalation Frequency: Daily Amount used: 10 bags Age of first use: 29 Date of Last Use: 07/05/18 Alprazolam (Xanax) Route: Oral Frequency: Daily Amount used: 4 mg Age of first use: 28 Date of Last Use: 07/05/18 Family Disease History - Family Disease History Family Disease History: Other: Father (seizure), Brother (no brother), Sister Admission Physical Exam BHS - Vital Signs Vital Signs: Vital Signs - 24 hr 07/05/18 19:41 Temperature 96.9 F L Pulse Rate 110 H Respiratory 18 Rate Blood Pressure 130/78 - Physical General Appearance: Yes: Moderate Distress, Tremorous, Irritable, Sweating, Anxious HEENTM: Yes: EOMI, Normal ENT Inspection, Normal Voice, JASON Respiratory: Yes: Lungs Clear, Normal Breath Sounds, No Respiratory Distress Neck: Yes: Supple Breast: Yes: Breast Exam Deferred Cardiology: Yes: Regular Rhythm, Regular Rate Abdominal: Yes: Normal Bowel Sounds Genitourinary: Yes: Within Normal Limits Back: Yes: Normal Inspection Musculoskeletal: Yes: Back pain, Muscle Pain Extremities: Yes: Tremors 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 NML intact, Alert, Normal Mood/Affect Integumentary: Yes: Warm Lymphatic: Yes: Within Normal Limits - Diagnostic (1) Anxiety Current Visit: Yes Status: Chronic (2) Depression Current Visit: Yes Status: Chronic Qualifiers: Depression Type: unspecified Qualified Code(s): F32.9 - Major depressive disorder, single episode, unspecified (3) Sedative, hypnotic or anxiolytic dependence with withdrawal, uncomplicated Current Visit: Yes Status: Chronic (4) Muscle spasm Current Visit: Yes Status: Chronic (5) Nicotine dependence Current Visit: Yes Status: Chronic Qualifiers: Nicotine product type: cigarettes Substance use status: uncomplicated Qualified Code(s): F17.210 - Nicotine dependence, cigarettes, uncomplicated (6) Opioid dependence with withdrawal Current Visit: Yes Status: Chronic Cleared for Admission [facility] - Detox or Rehab [facility] Level of Care: Medically Managed Detox Regimen/Protocol: Methadone/Valium [facility] Breath Alcohol Content Breath Alcohol Content: 0 Urine Drug Screen - Results Drug Screen Negative: No Urine Drug Screen Results: OPI-Opiates, BZO-Benzodiazepines, OXY-Oxycodone, FEN- Fentanyl, BUP-Suboxone
[2018-07-06] MEDS ORDERED: IBUPROFEN 400 MG TABLET (FP) PO PRN (00:37)
[2018-07-06] MEDS ORDERED: MAGNESIUM CITRATE 300 ML BOTTLE PO PRN (00:37)
[2018-07-06] MEDS ORDERED: MAG HYDROX/AL HYDROX/SIMETH 30 ML UNIT-DOSE CUP PO PRN (00:37)
[2018-07-06] MEDS ORDERED: NICOTINE POLACRILEX 2 MG GUM BC PRN (00:37)
[2018-07-06] MEDS ORDERED: diazePAM 5 MG TABLET PO ONE (00:37)
[2018-07-06] MEDS ORDERED: P-EPHED 60MG/TRIPROLIDI 2.5MG TABLET PO PRN (00:37)
[2018-07-06] MEDS ORDERED: ACETAMINOPHEN 325 MG TABLET (FP) PO PRN (00:37)
[2018-07-06] MEDS ORDERED: METHADONE HCL 10 MG TABLET (FOR DETOX USE ONLY) PO ONE ×3 (00:37→23:00)
[2018-07-06] MEDS ORDERED: LOPERAMIDE HCL 2 MG CAPSULE PO PRN (00:37)
[2018-07-06] MEDS ORDERED: MAGNESIUM HYDROX 2400MG/30ML ORAL SUSPENSION 30 ML CUP PO PRN (00:37)
[2018-07-06] MEDS ORDERED: MENTHOL/PHENOL 1 EACH UD MM PRN (00:37)
[2018-07-06] MEDS ORDERED: guaiFENesin/D-METHORPHAN HB 10 ML UNIT-DOSE CUPS PO PRN (00:37)
[2018-07-06] MEDS: diazePAM 5 MG TABLET PO SCH ×3 (06:38→22:20)
[2018-07-06] MEDS: NICOTINE 14 MG/24 HOURS TOPICAL PATCH TD SCH (10:29)
[2018-07-06] MEDS: diazePAM 5 MG TABLET PO PRN (10:29)
[2018-07-06] MEDS: PRENATAL VITAMINS W/ FOLIC ACID TABLET (FP) PO SCH (10:29)
--- NOTE | 2018-07-06 12:59 | EKG ---
Test Reason : Blood Pressure : / mmHG Vent. Rate : 099 BPM Atrial Rate : 099 BPM P-R Int : 188 ms QRS Dur : 100 ms QT Int : 378 ms P-R-T Axes : 053 067 047 degrees QTc Int : 485 ms NORMAL SINUS RHYTHM PROLONGED QT ABNORMAL ECG Confirmed by MD CHRIS, CARLENE ([id number]) on 07/06/2018 12:58:42 PM Referred By: Confirmed By:CARLENE PEREZ MD
--- NOTE | 2018-07-06 15:10 | PN ---
[facility] Progress Note Note: Patient admitted for opioid and benzo dependence. Patient reports joint pain, chills, tremors and sweating. He is stable and without any other complaints. Patient instructed to drink water for hydration. Continue detox protocol.
--- NOTE | 2018-07-06 15:39 | CONSULT ---
[facility] Psychiatric Consult - Data Date of interview: 07/06/18 Admission source: [facility] Identifying data: Re-admission to [facility] for this 33 y/o [place]-born male seeking detoxification treatment, on , for opioid and benzodiazepine dependence.Patient is single without children,domiciled,unemployed and supported by his relatives. Substance Abuse History: Confirmed by the patient in this interview. details in current [facility] report : Smoking history: Current every day smoker. Have you smoked in the past 12 months: Yes. Aproximately how many cigarettes per day: 10. Cigars Per Day: 0. Hx Chewing Tobacco Use: No. Initiated information on smoking cessation: Yes. 'Breaking Loose' booklet given: 07/06/18. - Substance & Tx. History. Hx Alcohol Use: No. Hx Substance Use: Yes. Substance Use Type : Heroin. Hx Substance Use Treatment: Yes ([facility]). - Substances Abused. Heroin. Route: Inhalation. Frequency: Daily. Amount used: 10 bags. Age of first use: 29. Date of Last Use: 07/05/18. Alprazolam (Xanax). Route: Oral. Frequency: Daily. Amount used: 4 mg. Age of first use: 28. Date of Last Use: 07/05/18 Medical History: Patient denies medical problems. Psychiatric History: History of multiple psychiatric hospitalizations ( [facility]). Patient is diagnosed with Bipolar Disorder. Mr Egan indicates that he stopped seeing psychiatrists because " they dislike patients like me ; they think that I am after scripts to get high ". Used to be under the care of Dr Aminta Wilkinson at a private clinic in [facility]. Patient reports a past history of methadone maintenance (160 mg/day ) at the [facility] in [facility]. Refuses to continue on psychotropic medications (zoloft 150 mg/day + trileptal 300 mg/bid). Patient denies history of suicide attempts Physical/Sexual Abuse/Trauma History: Patient denies. Additional Comment: Urine Drug Screen Results: OPI-Opiates, BZO-Benzodiazepines , OXY-Oxycodone, FEN-Fentanyl, BUP-Suboxone. Noted. Mental Status Exam - Mental Status Exam Alert and Oriented to: Time, Place, Person Cognitive Function: Good Patient Appearance: Unkempt, Disheveled Mood: Nervous, Withdrawn, Anxious Affect: Mood Congruent Patient Behavior: Fatigued, Cooperative Speech Pattern: Clear, Appropriate Voice Loudness: Normal Thought Process: Goal Oriented Thought Disorder: Not Present Hallucinations: Denies Suicidal Ideation: Denies Homicidal Ideation: Denies Insight/Judgement: Poor Sleep: Poorly, Difficulty falling asleep Appetite: Good Muscle strength/Tone: Normal Gait/Station: Normal Psychiatric Findings - Problem List ([place] 1, 2,3) (1) Opioid dependence with withdrawal Current Visit: Yes Status: Acute (2) Sedative, hypnotic or anxiolytic dependence with withdrawal, uncomplicated Current Visit: Yes Status: Acute (3) Nicotine dependence Current Visit: Yes Status: Acute Qualifiers: Nicotine product type: cigarettes Substance use status: uncomplicated Qualified Code(s): F17.210 - Nicotine dependence, cigarettes, uncomplicated (4) Bipolar disorder Current Visit: Yes Status: Chronic (5) Substance induced mood disorder Current Visit: Yes Status: Acute (6) Insomnia Current Visit: Yes Status: Acute (7) Non-compliant patient Current Visit: Yes Status: Acute - Initial Treatment Plan Initial Treatment Plan: Psychoeducation. Sleep hygiene. Psychotherapy ( individual, cognitive, group). Patient is made aware of the benefits of adherence to his psychotropic medications + maintenance of sobriety. Relapse prevention discussed : not receptive. Mr Egan declares that he is " not happy with suboxone and even less with methadone ". Observation.
[2018-07-06] MEDS ORDERED: MELATONIN 5 MG TABLETS PO PRN (22:00)
[2018-07-06] MEDS: THIAMINE HCL 100 MG TABLET (FP) PO SCH (22:20)
[2018-07-07] MEDS: diazePAM 5 MG TABLET PO SCH ×3 (05:28→22:25)
[2018-07-07] MEDS ORDERED: ONDANSETRON *ODT* 4 MG TABLET SL PRN (09:51)
[2018-07-07] MEDS ORDERED: METHADONE HCL 10 MG TABLET (FOR DETOX USE ONLY) PO SCH (10:00)
[2018-07-07] MEDS: diazePAM 5 MG TABLET PO PRN ×2 (10:32→17:28)
[2018-07-07] MEDS: NICOTINE 14 MG/24 HOURS TOPICAL PATCH TD SCH (10:32)
[2018-07-07] MEDS: PRENATAL VITAMINS W/ FOLIC ACID TABLET (FP) PO SCH (10:32)
--- NOTE | 2018-07-07 13:41 | PN ---
[facility] CIWA - CIWA Score Nausea/Vomitin Muscle Tremors: 4-Moderate,w/Arms Extend Anxiety: 3 Agitation: 3 Paroxysmal Sweats: 3 Orientation: 0-Oriented Tacttile Disturbances: 0-None Auditory Disturbances: 0-None Visual Disturbances: 0-None Headache: 0-None Present CIWA-Ar Total Score: 16 BHS COWS - Scale Resting Pulse: 1= [place] 81-100 Sweatin= Chills/Flushing Restless Observation: 3= Extraneous Movement Pupil Size: 0= Normal to Room Light Bone or Joint Aches: 2= Severe Diffuse Aches Runny Nose/ Eye Tearin= Runny Nose/Eyes GI Upset > 30mins: 2= Nausea/Diarrhea Tremor Observation of Outstretched Hands: 2= Slight Tremor Visible Yawning Observation: 1= 1-2x During Session Anxiety or Irritability: 2=Irritable/Anxious Goose Flesh Skin: 0=Smooth Skin COWS Score: 16 [facility] Progress Note (SOAP) Subjective: Joint pain, nausea, sweating, tremor, interrupted sleep Objective: 07/07/18 13:38 Last Vital Signs Temp Pulse Resp BP Pulse Ox 96.8 F L 87 18 114/72 07/07/18 09:36 07/07/18 09:36 07/07/18 09:36 07/07/18 09:36 Admission labs in progress (CBC, CMP, RPR), UA not yet done Assessment: 07/07/18 13:39 Withdrawal symptoms Plan: Continue detox Encouraged PO water intake
[2018-07-07 14:30] LABS: HEMATOCRIT 40.5 % (35.4-49); HEMOGLOBIN 13.4 GM/dL (11.7-16.9); MCH 29.5 pg (25.7-33.7); MEAN CELL VOLUME 89.4 fl (80-96); MEAN PLT VOLUME 8.6 fl (7.5-11.1); PLATELET COUNT 231 K/MM3 (134-434); RBC 4.53 M/mm3 (4.00-5.60); RDW 14.3 % (11.9-15.9); WHITE BLOOD COUNT 4.1 K/mm3 (4.0-10.0)
[2018-07-07 14:41] LABS: ALBUMIN 3.4 g/dl (3.4-5.0); ALK PHOS 66 U/L (45-117); ANION GAP 6 MMOL/L (8-16); BILIRUBIN,TOTAL 0.3 mg/dL (0.2-1); BLOOD UREA NITROGEN 9 mg/dL (7-18); CALCIUM 8.9 mg/dL (8.5-10.1); CHLORIDE 108 mmol/L (98-107); CO2 28 mmol/L (21-32); CREATININE 0.8 mg/dL (0.55-1.3); GLUCOSE,RANDOM 69 mg/dL (74-106); POTASSIUM 3.8 mmol/L (3.5-5.1); SGOT/AST 8 U/L (15-37); SGPT/ALT 22 U/L (13-61); SODIUM 142 mmol/L (136-145); TOT PROT 6.2 g/dl (6.4-8.2)
[2018-07-07] MEDS: ZOLPIDEM TARTRATE 10 MG TABLET (PARK CARE ONLY) PO PRN (22:25)
[2018-07-07] MEDS: THIAMINE HCL 100 MG TABLET (FP) PO SCH (22:25)
[2018-07-08] MEDS: diazePAM 5 MG TABLET PO PRN ×3 (02:43→17:22)
[2018-07-08] MEDS: PRENATAL VITAMINS W/ FOLIC ACID TABLET (FP) PO SCH (10:33)
[2018-07-08] MEDS: diazePAM 5 MG TABLET PO SCH ×2 (10:33→22:21)
[2018-07-08] MEDS: METHADONE HCL 5 MG TABLET (FOR DETOX USE ONLY) PO SCH (10:33)
[2018-07-08] MEDS: NICOTINE 14 MG/24 HOURS TOPICAL PATCH TD SCH (10:34)
--- NOTE | 2018-07-08 15:06 | PN ---
S CIWA - CIWA Score Nausea/Vomitin Muscle Tremors: 3 Anxiety: 3 Agitation: 3 Paroxysmal Sweats: 3 Orientation: 0-Oriented Tacttile Disturbances: 0-None Auditory Disturbances: 0-None Visual Disturbances: 0-None Headache: 1-Very Mild CIWA-Ar Total Score: 15 BHS COWS - Scale Resting Pulse: 1= [place] 81-100 Sweatin= Chills/Flushing Restless Observation: 1= Difficult to Sit Still Pupil Size: 0= Normal to Room Light Bone or Joint Aches: 2= Severe Diffuse Aches Runny Nose/ Eye Tearin= Runny Nose/Eyes GI Upset > 30mins: 2= Nausea/Diarrhea Tremor Observation of Outstretched Hands: 2= Slight Tremor Visible Yawning Observation: 1= 1-2x During Session Anxiety or Irritability: 2=Irritable/Anxious Goose Flesh Skin: 0=Smooth Skin COWS Score: 14 S Progress Note (SOAP) Subjective: Itching, chills, sweating, tremor Objective: 07/08/18 15:05 Last Vital Signs Temp Pulse Resp BP Pulse Ox 98.2 F 91 H 20 111/72 07/08/18 13:55 07/08/18 13:55 07/08/18 13:55 07/08/18 13:55 Laboratory Tests 07/07/18 07/07/18 07/07/18 07:15 07:15 07:15 WBC 4.1 RBC 4.53 Hgb 13.4 Hct 40.5 MCV 89.4 MCH 29.5 MCHC 33.0 RDW 14.3 Plt Count 231 MPV 8.6 Sodium 142 Potassium 3.8 Chloride 108 H Carbon Dioxide 28 Anion Gap 6 L BUN 9 Creatinine 0.8 Creat Clearance w eGFR > 60 Random Glucose 69 L Calcium 8.9 Total Bilirubin 0.3 AST 8 L ALT 22 Alkaline Phosphatase 66 Total Protein 6.2 L Albumin 3.4 RPR Titer Nonreactive Labs reviewed Assessment: 07/08/18 15:05 Withdrawal symptoms Plan: Continue detox Encouraged PO water intake
--- NOTE | 2018-07-08 18:02 | PN ---
[facility] Progress Note Note: Vital Signs Temperature 97.9 F 07/08/18 17:44 Pulse Rate 98 H 07/08/18 17:44 Respiratory Rate 18 07/08/18 17:44 Blood Pressure 94/64 07/08/18 17:44 O2 Sat by Pulse Oximetry (%) c/o withdrawal sx flexeril PRN increase fluids continue detox continue to monitor
[2018-07-08] MEDS: CYCLOBENZAPRINE HCL 10 MG TABLET (FP) PO PRN (18:38)
[2018-07-08 19:25] LABS: URINE APPEARANCE CLEAR; URINE BILIRUBIN NEGATIVE (<2.0 mg/dL); URINE COLOR STRAW; URINE GLUCOSE (UA) NEGATIVE (NEGATIVE); URINE KETONE NEGATIVE (NEGATIVE); URINE LEUK ESTERASE 2+ (NEGATIVE); URINE NITRITE NEGATIVE (NEGATIVE); URINE PROTEIN NEGATIVE (NEGATIVE); URINE UROBILINOGEN NEGATIVE mg/dL (0.2-1.0)
[2018-07-08 19:58] LABS: EPI CELLS RARE /HPF (FEW)
[2018-07-08] MEDS: THIAMINE HCL 100 MG TABLET (FP) PO SCH (22:21)
[2018-07-08] MEDS: ZOLPIDEM TARTRATE 10 MG TABLET (PARK CARE ONLY) PO PRN (22:21)
[2018-07-09] MEDS ORDERED: hydrOXYzine PAMOATE 50 MG CAPSULE (FP) PO PRN (09:27)
[2018-07-09] MEDS: PRENATAL VITAMINS W/ FOLIC ACID TABLET (FP) PO SCH (10:11)
[2018-07-09] MEDS: diazePAM 5 MG TABLET PO SCH ×2 (10:11→22:19)
[2018-07-09] MEDS: METHADONE HCL 5 MG TABLET (FOR DETOX USE ONLY) PO SCH (10:11)
[2018-07-09] MEDS: NICOTINE 14 MG/24 HOURS TOPICAL PATCH TD SCH (10:11)
[2018-07-09] MEDS: hydrOXYzine PAMOATE 25 MG CAPSULE (FP) PO PRN ×2 (10:14→17:41)
--- NOTE | 2018-07-09 15:09 | PN ---
[facility] Progress Note (SOAP) Subjective: Joint pain, sweating, interrupted sleep Objective: 07/09/18 15:07 Last Vital Signs Temp Pulse Resp BP Pulse Ox 96.9 F L 104 H 18 113/75 07/09/18 13:58 07/09/18 13:58 07/09/18 13:58 07/09/18 13:58 Laboratory Tests 07/07/18 07/07/18 07/07/18 07:15 07:15 07:15 WBC 4.1 RBC 4.53 Hgb 13.4 Hct 40.5 MCV 89.4 MCH 29.5 MCHC 33.0 RDW 14.3 Plt Count 231 MPV 8.6 Sodium 142 Potassium 3.8 Chloride 108 H Carbon Dioxide 28 Anion Gap 6 L BUN 9 Creatinine 0.8 Creat Clearance w eGFR > 60 Random Glucose 69 L Calcium 8.9 Total Bilirubin 0.3 AST 8 L ALT 22 Alkaline Phosphatase 66 Total Protein 6.2 L Albumin 3.4 Urine Color Urine Appearance Urine pH Ur Specific Moody Urine Protein Urine Glucose (UA) Urine Ketones Urine Blood Urine Nitrite Urine Bilirubin Urine Urobilinogen Ur Leukocyte Esterase Urine WBC (Auto) Urine RBC (Auto) Ur Epithelial Cells RPR Titer Nonreactive 07/08/18 18:30 WBC RBC Hgb Hct MCV MCH MCHC RDW Plt Count MPV Sodium Potassium Chloride Carbon Dioxide Anion Gap BUN Creatinine Creat Clearance w eGFR Random Glucose Calcium Total Bilirubin AST ALT Alkaline Phosphatase Total Protein Albumin Urine Color Straw Urine Appearance Clear Urine pH 7.0 Ur Specific [place] 1.006 L Urine Protein Negative Urine Glucose (UA) Negative Urine Ketones Negative Urine Blood Negative Urine Nitrite Negative Urine Bilirubin Negative Urine Urobilinogen Negative Ur Leukocyte Esterase 2+ H Urine WBC (Auto) 2 Urine RBC (Auto) 1 Ur Epithelial Cells Rare RPR Titer Labs reviewed: abnormal UA Assessment: 07/09/18 15:09 Withdrawal symptoms Noted with abnormal UA Plan: Continue detox Abnormal UA: encouraged PO water intake, repeat UA
[2018-07-09] MEDS: THIAMINE HCL 100 MG TABLET (FP) PO SCH (22:19)
[2018-07-09] MEDS: CYCLOBENZAPRINE HCL 10 MG TABLET (FP) PO PRN (22:19)
[2018-07-09] MEDS: ZOLPIDEM TARTRATE 10 MG TABLET (PARK CARE ONLY) PO PRN (22:19)
--- NOTE | 2018-07-10 09:27 | PN ---
[facility] Progress Note Note: c/o feeling anxious, back pain, body aches, interrupted sleep Vital Signs Temperature 98.1 F 07/10/18 06:29 Pulse Rate 102 H 07/10/18 06:29 Respiratory Rate 18 07/10/18 06:29 Blood Pressure 98/61 07/10/18 06:29 O2 Sat by Pulse Oximetry (%) Laboratory Last Values WBC 4.1 K/mm3 (4.0-10.0) 07/07/18 07:15 RBC 4.53 M/mm3 (4.00-5.60) 07/07/18 07:15 Hgb 13.4 GM/dL (11.7-16.9) 07/07/18 07:15 Hct 40.5 % (35.4-49) 07/07/18 07:15 MCV 89.4 fl (80-96) 07/07/18 07:15 MCH 29.5 pg (25.7-33.7) 07/07/18 07:15 MCHC 33.0 g/dl (32.0-35.9) 07/07/18 07:15 RDW 14.3 % (11.9-15.9) 07/07/18 07:15 Plt Count 231 K/MM3 (134-434) 07/07/18 07:15 MPV 8.6 fl (7.5-11.1) 07/07/18 07:15 Sodium 142 mmol/L (136-145) 07/07/18 07:15 Potassium 3.8 mmol/L (3.5-5.1) 07/07/18 07:15 Chloride 108 mmol/L (98-107) H 07/07/18 07:15 Carbon Dioxide 28 mmol/L (21-32) 07/07/18 07:15 Anion Gap 6 MMOL/L (8-16) L 07/07/18 07:15 BUN 9 mg/dL (7-18) 07/07/18 07:15 Creatinine 0.8 mg/dL (0.55-1.3) 07/07/18 07:15 Creat Clearance w eGFR > 60 (>60) 07/07/18 07:15 Random Glucose 69 mg/dL (74-106) L 07/07/18 07:15 Calcium 8.9 mg/dL (8.5-10.1) 07/07/18 07:15 Total Bilirubin 0.3 mg/dL (0.2-1) 07/07/18 07:15 AST 8 U/L (15-37) L 07/07/18 07:15 ALT 22 U/L (13-61) 07/07/18 07:15 Alkaline Phosphatase 66 U/L (45-117) 07/07/18 07:15 Total Protein 6.2 g/dl (6.4-8.2) L 07/07/18 07:15 Albumin 3.4 g/dl (3.4-5.0) 07/07/18 07:15 Urine Color Straw 07/08/18 18:30 Urine Appearance Clear 07/08/18 18:30 Urine pH 7.0 (5.0-8.0) 07/08/18 18:30 Ur Specific [place] 1.006 (1.010-1.035) L 07/08/18 18:30 Urine Protein Negative (NEGATIVE) 07/08/18 18:30 Urine Glucose (UA) Negative (NEGATIVE) 07/08/18 18:30 Urine Ketones Negative (NEGATIVE) 07/08/18 18:30 Urine Blood Negative (NEGATIVE) 07/08/18 18:30 Urine Nitrite Negative (NEGATIVE) 07/08/18 18:30 Urine Bilirubin Negative (<2.0 mg/dL) 07/08/18 18:30 Urine Urobilinogen Negative mg/dL (0.2-1.0) 07/08/18 18:30 Ur Leukocyte Esterase 2+ (NEGATIVE) H 07/08/18 18:30 Urine WBC (Auto) 2 /hpf (3-5) 07/08/18 18:30 Urine RBC (Auto) 1 /hpf (0-3) 07/08/18 18:30 Ur Epithelial Cells Rare /HPF (FEW) 07/08/18 18:30 RPR Titer Nonreactive (NONREACTIVE) 07/07/18 07:15 Aox3 no distress, no distress no adventitious breath sounds full ROM,ambulating independent, + back pain withdrawal sx increase fluids continue detox continue to monitor
[2018-07-10] MEDS ORDERED: diazePAM 5 MG TABLET PO SCH (10:00)
[2018-07-10] MEDS ORDERED: METHADONE HCL 10 MG TABLET (FOR DETOX USE ONLY) PO SCH (10:00)
[2018-07-10] MEDS: PRENATAL VITAMINS W/ FOLIC ACID TABLET (FP) PO SCH (10:33)
[2018-07-10] MEDS: NICOTINE 14 MG/24 HOURS TOPICAL PATCH TD SCH (10:34)
[2018-07-10] MEDS: hydrOXYzine PAMOATE 25 MG CAPSULE (FP) PO PRN ×3 (13:43→21:47)
[2018-07-10] MEDS: CYCLOBENZAPRINE HCL 10 MG TABLET (FP) PO PRN (17:26)
[2018-07-10] MEDS: ZOLPIDEM TARTRATE 10 MG TABLET (PARK CARE ONLY) PO PRN (21:46)
[2018-07-10] MEDS: THIAMINE HCL 100 MG TABLET (FP) PO SCH (21:47)
[2018-07-11] MEDS ORDERED: METHADONE HCL 5 MG TABLET (FOR DETOX USE ONLY) PO SCH (06:00)
[2018-07-11] MEDS: hydrOXYzine PAMOATE 25 MG CAPSULE (FP) PO PRN (06:15)
[2018-07-11 06:38] VITALS: BP 119/62; PULSE 90; TEMP 97.7
--- NOTE | 2018-07-11 11:27 | DS ---
[facility] Detox Discharge Summary Admission Date: 07/05/18 Discharge Date: 07/11/18 - History Present History: Opioid Dependence, Sedative Dependence Pertinent Past History: Nicotine dependence Sedative dependence Opioid dependence - Physical Exam Results Vital Signs: Vital Signs Temperature 97.7 F 07/11/18 06:37 Pulse Rate 90 07/11/18 06:37 Respiratory Rate 18 07/11/18 06:37 Blood Pressure 119/62 07/11/18 06:37 O2 Sat by Pulse Oximetry (%) Pertinent Admission Physical Exam Findings: Withdrawal symptoms Laboratory Tests 07/07/18 07/07/18 07/07/18 07:15 07:15 07:15 WBC 4.1 RBC 4.53 Hgb 13.4 Hct 40.5 MCV 89.4 MCH 29.5 MCHC 33.0 RDW 14.3 Plt Count 231 MPV 8.6 Sodium 142 Potassium 3.8 Chloride 108 H Carbon Dioxide 28 Anion Gap 6 L BUN 9 Creatinine 0.8 Creat Clearance w eGFR > 60 Random Glucose 69 L Calcium 8.9 Total Bilirubin 0.3 AST 8 L ALT 22 Alkaline Phosphatase 66 Total Protein 6.2 L Albumin 3.4 Urine Color Urine Appearance Urine pH Ur Specific [place] Urine Protein Urine Glucose (UA) Urine Ketones Urine Blood Urine Nitrite Urine Bilirubin Urine Urobilinogen Ur Leukocyte Esterase Urine WBC (Auto) Urine RBC (Auto) Ur Epithelial Cells RPR Titer Nonreactive 07/08/18 18:30 WBC RBC Hgb Hct MCV MCH MCHC RDW Plt Count MPV Sodium Potassium Chloride Carbon Dioxide Anion Gap BUN Creatinine Creat Clearance w eGFR Random Glucose Calcium Total Bilirubin AST ALT Alkaline Phosphatase Total Protein Albumin Urine Color Straw Urine Appearance Clear Urine pH 7.0 Ur Specific [place] 1.006 L Urine Protein Negative Urine Glucose (UA) Negative Urine Ketones Negative Urine Blood Negative Urine Nitrite Negative Urine Bilirubin Negative Urine Urobilinogen Negative Ur Leukocyte Esterase 2+ H Urine WBC (Auto) 2 Urine RBC (Auto) 1 Ur Epithelial Cells Rare RPR Titer Labs reviewed: abnormal UA (patient refused to provide urine sample for repeated UA), encouraged to drink more water, F/U with PCP for further evaluation - Treatment Hospital Course: Detox Protocol Followed, Detoxed Safely, Responded well, Discharged Condition Good - Medication Discharge Medications: Ambulatory Orders Escitalopram Oxalate [Lexapro -] 20 mg PO DAILY 07/05/18 - Diagnosis (1) Nicotine dependence Status: Chronic Qualifiers: Nicotine product type: cigarettes Substance use status: uncomplicated Qualified Code(s): F17.210 - Nicotine dependence, cigarettes, uncomplicated (2) Opioid dependence with withdrawal Status: Acute (3) Sedative, hypnotic or anxiolytic dependence with withdrawal, uncomplicated Status: Acute (4) Anxiety Status: Chronic (5) Depression Status: Chronic Qualifiers: Depression Type: unspecified Qualified Code(s): F32.9 - Major depressive disorder, single episode, unspecified (6) Abnormal finding on urinalysis Status: Acute - AMA Did Patient Leave Against Medical Advice: No (F/U with your PCP within 1-2 weeks )
== END 2018-07-11 09:25 | disposition home or self-care (01) | DRG 773 ==
LOC: YASAS 17:50 → Y3N 22:12
PROC: HZ2ZZZZ Detoxification Services for Substance Abuse Treatment (ICD-10-PCS; principal; 2018-07-05)
DX: F11.23 Opioid dependence with withdrawal (principal); F13.230 Sedative, hypnotic or anxiolytic dependence with withdrawal, uncomplicated; F17.210 Nicotine dependence, cigarettes, uncomplicated; F31.9 Bipolar disorder, unspecified; F41.9 Anxiety disorder, unspecified; F32.9 Major depressive disorder, single episode, unspecified; F19.24 Other psychoactive substance dependence with psychoactive substance-induced mood disorder; G47.00 Insomnia, unspecified; R82.90 Unspecified abnormal findings in urine; M62.838 Other muscle spasm; Z91.19 Patient's noncompliance with other medical treatment and regimen
CPT/HCPCS: 36415; 80053; 81003; 81015; 85027; 86593; 93005; 93010

== ENCOUNTER 2019-10-02 14:25 | Inpatient (IN) | payer OTHER ==
[2019-10-02 15:18] VITALS: BMI 25.0
--- NOTE | 2019-10-02 15:45 | HP ---
"COWS - Scale Resting Pulse: 0= [place] 80 or Below Sweatin= Chills/Flushing Restless Observation: 1= Difficult to Sit Still Pupil Size: 0= Normal to Room Light Bone or Joint Aches: 2= Severe Diffuse Aches Runny Nose/ Eye Tearin= Runny Nose/Eyes GI Upset > 30mins: 2= Nausea/Diarrhea Tremor Observation: 0= None Yawning Observation: 0= None Anxiety or Irritability: 2=Irritable/Anxious Goose Flesh Skin: 0=Smooth Skin COWS Score: 10 CIWA Score Nausea/Vomitin Muscle Tremors: None Anxiety: 2 Agitation: 1-Slight > Activity Paroxysmal Sweats: 1-Minimal Palms Moist Orientation: 0-Oriented Tacttile Disturbances: 0-None Auditory Disturbances: 0-None Visual Disturbances: 0-None Headache: 0-None Present CIWA-Ar Total Score: 6 - Admission Criteria OASAS Guidelines: Admission for Medically Managed Detox: Requires at least one of the followin. CIWA greater than 12 2. Seizures within the past 24 hours 3. Delirium tremens within the past 24 hours 4. Hallucinations within the past 24 hours 5. Acute intervention needed for co occurring medical disorder 6. Acute intervention needed for co occurring psychiatric disorder 7. Severe withdrawal that cannot be handled at a lower level of care (continued vomiting, continued diarrhea, abnormal vital signs) requiring intravenous medication and/or fluids 8. Admitting History and Physical - Smoking History Smoking history: Current every day smoker Have you smoked in the past 12 months: Yes Aproximately how many cigarettes per day: 10 - Alcohol/Substance Use Hx Alcohol Use: No Admission [facility] Allergies/Adverse Reactions: Allergies Allergy/AdvReac Type Severity Reaction Status Date / Time No Known Allergies Allergy Verified 10/02/19 15:08 History of Present Illness: Search Terms: yvrose mcghee, 1985 Search Date: 10/02/2019 03:45:17 PM The Drug Utilization Report below displays all of the controlled substance prescriptions, if any, that your patient has filled in the last twelve months. The information displayed on this report is compiled from pharmacy submissions to the Department, and accurately reflects the information as submitted by the pharmacies. This report was requested by: Tara Dawkins | Reference #: [id number] There are no results for the search terms that you entered. pt here requesting detox from opiates and benzo use, reports 4 bundles/day heroin via inhalation , denies IV , relapsed 3 mo ago after dental procedure , klonopin 0.5 mg 4 x /day , latest use yesterday 4 a.m. tobacco : 1 ppd . Exam Limitations: No Limitations - Ebola screening Have you traveled outside of the country in the last 21 days: No (N) Have you had contact with anyone from an Ebola affected area: No Do you have a fever: No - Review of Systems Constitutional: See HPI, Chills, Loss of Appetite EENT: reports: No Symptoms Reported Respiratory: reports: No Symptoms reported Cardiac: reports: No Symptoms Reported GI: reports: See HPI : reports: No Symptoms Reported Musculoskeletal: reports: See HPI Integumentary: reports: See HPI, Other (right lower leg since s states hit leg against fence .) Neuro: reports: No Symptoms reported Endocrine: reports: No Symptoms Reported Psychiatric: reports: Orientated x3, Agitated, Anxious Patient History - Patient Medical History Hx Anemia: No Hx Asthma: No Hx Chronic Obstructive Pulmonary Disease (COPD): No Hx Cancer: No Hx Cardiac Disorders: No Hx Congestive Heart Failure: No Hx Hypertension: No Hx Hypercholesterolemia: No Hx Pacemaker: No HX Cerebrovascular Accident: No Hx Seizures: No Hx Dementia: No Hx Diabetes: No Hx Gastrointestinal Disorders: No Hx Liver Disease: No Hx Genitourinary Disorders: No Hx Sexually Transmitted Disorders: No Hx Renal Disease (ESRD): No Hx Thyroid Disease: No Hx Human Immunodeficiency Virus (HIV): No Hx Hepatitis C: No Hx Depression: Yes (Not on medication) Hx Suicide Attempt: No Hx Bipolar Disorder: Yes Hx Schizophrenia: No - Patient Surgical History Past Surgical History: Yes Hx Neurologic Surgery: No Hx Cataract Extraction: No Hx Cardiac Surgery: No Hx Lung Surgery: No Hx Breast Surgery: No Hx Breast Biopsy: No Hx Abdominal Surgery: No Hx Appendectomy: No Hx Cholecystectomy: No Hx Genitourinary Surgery: No Hx Orthopedic Surgery: Yes Other Surgical History: nasal bridge fx 2014 Anesthesia Reaction: No - PPD History Date: 07/28/17 - Smoking Cessation Smoking history: Current every day smoker Have you smoked in the past 12 months: Yes Aproximately how many cigarettes per day: 10 Cigars Per Day: 0 Hx Chewing Tobacco Use: No Initiated information on smoking cessation: No - Substances abused Heroin Substance route: Inhalation Frequency: Daily Amount used: 4 BUNDLES Age of first use: 29 Date of last use: 10/01/19 Benzodiazepine (Klonopin) Substance route: Oral Frequency: Daily Amount used: 2 mg Age of first use: 29 Date of last use: 10/02/19 Admission Physical Exam [facility] - Vital Signs Vital Signs: Vital Signs - 24 hr 10/02/19 14:55 Temperature 97.3 F L Pulse Rate 71 Respiratory 18 Rate Blood Pressure 120/74 - Physical General Appearance: Yes: Mild Distress, Anxious HEENTM: Yes: EOMI, Hearing grossly Normal, Normocephalic, Normal Voice Respiratory: Yes: Chest Non-Tender, Lungs Clear, Normal Breath Sounds, No Respiratory Distress, No Accessory Muscle Use Neck: Yes: No masses,lesions,Nodules, Trachea in good position Cardiology: Yes: Regular Rhythm, Regular Rate, S1, S2, Other (QTc 488 ms ) Abdominal: Yes: Non Tender, Soft Musculoskeletal: Yes: full range of Motion, Gait Steady Extremities: Yes: Normal Range of Motion, Non-Tender Neurological: Yes: Fully Oriented, Alert, Motor Strength 5/5 Integumentary: Yes: Warm, Other (superficial excoriation right pre-tibial , healing) - Diagnostic (1) Opioid dependence with withdrawal Current Visit: Yes Status: Chronic (2) Sedative, hypnotic or anxiolytic dependence with withdrawal, uncomplicated Current Visit: Yes Status: Chronic (3) Nicotine dependence Current Visit: Yes Status: Chronic Qualifiers: Nicotine product type: cigarettes Substance use status: uncomplicated Qualified Code(s): F17.210 - Nicotine dependence, cigarettes, uncomplicated Breathalyzer - Breathalyzer Breathalyzer: 0 Urine Drug Screen - Test Device Lot number: [id number] Expiration date: 04/13/21 - Control Is test valid?: Yes - Results Drug screen NEGATIVE: No Urine drug screen results: SAM-Cocaine, FEN-Fentanyl, MOP-Opiates, OXY-Oxycodone Inpatient Rehab Admission - Rehab Decision to Admit Inpatient rehab admission?: No"
[2019-10-02] MEDS ORDERED: MAGNESIUM HYDROX 2400MG/30ML ORAL SUSPENSION 30 ML CUP PO PRN (16:05)
[2019-10-02] MEDS ORDERED: BISMUTH SUBSALICYLATE 524 MG/30 ML UD PO PRN (16:05)
[2019-10-02] MEDS ORDERED: ACETAMINOPHEN 325 MG TABLET (FP) PO PRN ×2 (16:05)
[2019-10-02] MEDS ORDERED: IBUPROFEN 400 MG TABLET (FP) PO PRN (16:05)
[2019-10-02] MEDS ORDERED: MENTHOL/PHENOL 1 EACH UD MM PRN (16:05)
[2019-10-02] MEDS ORDERED: MELATONIN 5 MG TABLETS PO PRN (16:05)
[2019-10-02] MEDS ORDERED: hydrOXYzine PAMOATE 25 MG CAPSULE (FP) PO PRN (16:05)
[2019-10-02] MEDS ORDERED: MAG HYDROX/AL HYDROX/SIMETH 30 ML UNIT-DOSE CUP PO PRN (16:05)
[2019-10-02] MEDS ORDERED: MAGNESIUM CITRATE 300 ML BOTTLE PO PRN (16:05)
[2019-10-02] MEDS ORDERED: METHADONE HCL 10 MG TABLET (FOR DETOX USE ONLY) PO ONE (16:06)
[2019-10-02] MEDS ORDERED: cloNIDine HCL 0.1 MG TABLET PO PRN (16:06)
[2019-10-02] MEDS: METHOCARBAMOL 500 MG TABLET PO PRN (17:19)
[2019-10-02] MEDS: clonazePAM 0.5 MG TABLET PO PRN (17:19)
[2019-10-02] MEDS: THIAMINE HCL 100 MG TABLET (FP) PO SCH (22:28)
[2019-10-03] MEDS ORDERED: METHADONE HCL 10 MG TABLET (FOR DETOX USE ONLY) ONE (09:27)
[2019-10-03] MEDS ORDERED: METHADONE HCL 5 MG TABLET (FOR DETOX USE ONLY) ONE (09:27)
[2019-10-03] MEDS ORDERED: METHADONE (DETOX) 20 MG, METHADONE (DETOX) 5 MG PO ONE (10:00)
[2019-10-03] MEDS: PRENATAL VITAMINS W/ FOLIC ACID TABLET (FP) PO SCH (10:12)
[2019-10-03] MEDS: METHOCARBAMOL 500 MG TABLET PO PRN ×2 (10:14→16:53)
[2019-10-03] MEDS: clonazePAM 0.5 MG TABLET PO PRN ×2 (10:14→16:51)
--- NOTE | 2019-10-03 10:24 | CONSULT ---
[facility] Psychiatric Consult - Data Date of interview: 10/03/19 Admission source: Self-referred Identifying data: Mr Egan is a 34 years old single [place]-born male, unemployed with no source of income, domiciled living with family seeking detox treatment for opioid and benzodiazrepine Substance Abuse History: Reports history of heroin and klonopin use. Refer to addiction counselor's summary for further information Medical History: Unremarkable except for history of nasal fracture. Smokes 10 cigarettes daily Psychiatric History: Reports being diagnosed with MDD approximately 5 years ago and started on psychotropic medications. Reports multiple previous psychiatric hospitalizations at various facilities including [facility], [facility], [facility], [facility]. Reports that he is no longer seeing Dr Aminta Polo, a private psychiatrist but he is currently prescribed Lexapro 20 mg/day by his primary care physician. Denies previous psychiatric hospitalization or suicidal attempt. At present, reports feeling depressed, anxious and sleeping poorly Mental Status Exam - Mental Status Exam Alert and Oriented to: Time, Place, Person Cognitive Function: Fair Patient Appearance: Well Groomed Mood: Depressed, Anxious Affect: Appropriate Patient Behavior: Cooperative Speech Pattern: Clear Voice Loudness: Normal Thought Process: Intact Thought Disorder: Not Present Hallucinations: Denies Suicidal Ideation: Denies Homicidal Ideation: Denies Insight/Judgement: Poor Sleep: Poorly Appetite: Poor Muscle strength/Tone: Normal Gait/Station: Normal Psychiatric Findings - Problem List ([place] 1, 2,3) (1) MDD (major depressive disorder) Current Visit: Yes Status: Chronic (2) Substance induced mood disorder Current Visit: No Status: Acute (3) Substance-induced sleep disorder Current Visit: Yes Status: Acute (4) Opioid dependence with withdrawal Current Visit: Yes Status: Acute (5) Sedative, hypnotic or anxiolytic dependence with withdrawal, uncomplicated Current Visit: Yes Status: Acute (6) Nicotine dependence Current Visit: Yes Status: Chronic Qualifiers: Nicotine product type: cigarettes Substance use status: uncomplicated Qualified Code(s): F17.210 - Nicotine dependence, cigarettes, uncomplicated - Initial Treatment Plan Initial Treatment Plan: 1) ContinueLexapro 20 mg po daily. 2) Start Belsomra 10 mg po HS prn for insomnia. 3) Continue inpatient detoxification
--- NOTE | 2019-10-03 11:05 | PN ---
[facility] CIWA - CIWA Score Nausea/Vomitin-Mild Nausea/No Vomiting Muscle Tremors: 4-Moderate,w/Arms Extend Anxiety: 3 Agitation: 2 Paroxysmal Sweats: 2 Orientation: 0-Oriented Tacttile Disturbances: 0-None Auditory Disturbances: 0-None Visual Disturbances: 0-None Headache: 0-None Present CIWA-Ar Total Score: 12 S COWS - Scale Resting Pulse: 1= [place] 81-100 Sweatin= No chills or Flushing Restless Observation: 0= Sits Still Pupil Size: 1= Pupils >than Normal Bone or Joint Aches: 0= None Runny Nose/ Eye Tearin= None GI Upset > 30mins: 2= Nausea/Diarrhea Tremor Observation of Outstretched Hands: 2= Slight Tremor Visible Yawning Observation: 0= None Anxiety or Irritability: 2=Irritable/Anxious Goose Flesh Skin: 0=Smooth Skin COWS Score: 8 [facility] Progress Note (SOAP) Subjective: 34 years old male admitted on 10/02/19 for benzo and opiate withdrawal sx management treating with klonopin prn and methadone detox regimen ate breakfast resting in bed body aches and anxiety health teaching on risks of benzo mixing with opiate discussed medication assisted treatment program Objective: 10/03/19 11:07 Vital Signs Temperature 97.0 F L 10/03/19 09:15 Pulse Rate 81 10/03/19 09:15 Respiratory Rate 18 10/03/19 09:15 Blood Pressure 130/76 10/03/19 09:15 O2 Sat by Pulse Oximetry (%) 10/03/19 11:07 lab pending Assessment: 10/03/19 11:07 benzo and opiate withdrawal Plan: klonopin prn and methadone regimens
[2019-10-03 12:35] LABS: ALBUMIN 3.3 g/dl (3.4-5.0); BILIRUBIN,TOTAL 0.3 mg/dL (0.2-1); BLOOD UREA NITROGEN 9.4 mg/dL (7-18); CALCIUM 8.8 mg/dL (8.5-10.1); CREATININE 0.8 mg/dL (0.55-1.3); POTASSIUM 4.2 mmol/L (3.5-5.1); TOT PROT 6.4 g/dl (6.4-8.2)
[2019-10-03 12:39] LABS: HEMATOCRIT 39.3 % (35.4-49); MCH 28.7 pg (25.7-33.7); MCHC 33.2 g/dl (32.0-35.9); MEAN CELL VOLUME 86.6 fl (80-96); MEAN PLT VOLUME 7.7 fl (7.5-11.1); PLATELET COUNT 278 K/MM3 (134-434); RBC 4.54 M/mm3 (4.00-5.60); RDW 13.6 % (11.9-15.9); WHITE BLOOD COUNT 5.7 K/mm3 (4.0-10.0)
[2019-10-03] MEDS ORDERED: ESCITALOPRAM OXALATE 10 MG TABLET ONE (13:16)
[2019-10-03] MEDS: ESCITALOPRAM OXALATE 20 MG TABLET PO SCH (13:17)
[2019-10-03] MEDS: THIAMINE HCL 100 MG TABLET (FP) PO SCH (22:17)
[2019-10-03] MEDS: SUVOREXANT 10 MG TABLET PO PRN (22:18)
[2019-10-04] MEDS ORDERED: ESCITALOPRAM OXALATE 10 MG TABLET ONE (09:18)
[2019-10-04] MEDS ORDERED: METHADONE HCL 10 MG TABLET (FOR DETOX USE ONLY) PO ONE (10:00)
[2019-10-04] MEDS: ESCITALOPRAM OXALATE 20 MG TABLET PO SCH (10:10)
[2019-10-04] MEDS: PRENATAL VITAMINS W/ FOLIC ACID TABLET (FP) PO SCH (10:10)
[2019-10-04] MEDS: METHOCARBAMOL 500 MG TABLET PO PRN ×3 (10:13→22:27)
[2019-10-04] MEDS: clonazePAM 0.5 MG TABLET PO PRN ×3 (10:13→22:26)
--- NOTE | 2019-10-04 12:00 | PN ---
S CIWA - CIWA Score Nausea/Vomitin-No Nausea/No Vomiting Muscle Tremors: 2 Anxiety: 2 Agitation: 1-Slight > Activity Paroxysmal Sweats: 2 Orientation: 0-Oriented Tacttile Disturbances: 0-None Auditory Disturbances: 0-None Visual Disturbances: 0-None Headache: 0-None Present CIWA-Ar Total Score: 7 [facility] COWS - Scale Resting Pulse: 0= [place] 80 or Below Sweatin= Chills/Flushing Restless Observation: 0= Sits Still Pupil Size: 1= Pupils >than Normal Bone or Joint Aches: 1= Mild Discomfort Runny Nose/ Eye Tearin= Nasal Congestion GI Upset > 30mins: 1= Stomach Cramp Tremor Observation of Outstretched Hands: 1= Tremor [place], Not Seen Yawning Observation: 0= None Anxiety or Irritability: 1=Feels Anxious/Irritable Goose Flesh Skin: 0=Smooth Skin COWS Score: 7 S Progress Note (SOAP) Subjective: 34 years old male admitted on 10/02/19 for benzo and opiate withdrawal sx management treating with klonopin prn and methadone detox regimen feeling ok today ate breakfast and lunch in room encourage the patient to attend behavior and psychosocial therapies while in detox Objective: 10/04/19 12:56 Vital Signs Temperature 98.2 F 10/04/19 09:03 Pulse Rate 73 10/04/19 09:03 Respiratory Rate 16 10/04/19 09:03 Blood Pressure 98/69 10/04/19 09:03 O2 Sat by Pulse Oximetry (%) Laboratory Last Values WBC 5.7 K/mm3 (4.0-10.0) 10/03/19 07:25 RBC 4.54 M/mm3 (4.00-5.60) 10/03/19 07:25 Hgb 13.0 GM/dL (11.7-16.9) 10/03/19 07:25 Hct 39.3 % (35.4-49) 10/03/19 07:25 MCV 86.6 fl (80-96) 10/03/19 07:25 MCH 28.7 pg (25.7-33.7) 10/03/19 07:25 MCHC 33.2 g/dl (32.0-35.9) 10/03/19 07:25 RDW 13.6 % (11.9-15.9) 10/03/19 07:25 Plt Count 278 K/MM3 (134-434) D 10/03/19 07:25 MPV 7.7 fl (7.5-11.1) D 10/03/19 07:25 Sodium 140 mmol/L (136-145) 10/03/19 07:25 Potassium 4.2 mmol/L (3.5-5.1) 10/03/19 07:25 Chloride 109 mmol/L (98-107) H 10/03/19 07:25 Carbon Dioxide 27 mmol/L (21-32) 10/03/19 07:25 Anion Gap 5 MMOL/L (8-16) L 10/03/19 07:25 BUN 9.4 mg/dL (7-18) 10/03/19 07:25 Creatinine 0.8 mg/dL (0.55-1.3) 10/03/19 07:25 Est GFR (CKD-EPI)AfAm 133.20 10/03/19 07:25 Est GFR (CKD-EPI)NonAf 114.93 10/03/19 07:25 Random Glucose 86 mg/dL (74-106) 10/03/19 07:25 Calcium 8.8 mg/dL (8.5-10.1) 10/03/19 07:25 Total Bilirubin 0.3 mg/dL (0.2-1) 10/03/19 07:25 AST 18 U/L (15-37) 10/03/19 07:25 ALT 36 U/L (13-61) 10/03/19 07:25 Alkaline Phosphatase 92 U/L (45-117) 10/03/19 07:25 Total Protein 6.4 g/dl (6.4-8.2) 10/03/19 07:25 Albumin 3.3 g/dl (3.4-5.0) L 10/03/19 07:25 RPR Titer Nonreactive (NONREACTIVE) 10/03/19 07:25 lab noted Assessment: 10/04/19 12:56 benzo and opiate withdrawal Plan: klonopin prn and methadone regiment
[2019-10-04] MEDS: THIAMINE HCL 100 MG TABLET (FP) PO SCH (22:24)
[2019-10-04] MEDS: SUVOREXANT 10 MG TABLET PO PRN (22:24)
[2019-10-05] MEDS ORDERED: METHADONE HCL 10 MG TABLET (FOR DETOX USE ONLY) ONE (09:17)
[2019-10-05] MEDS ORDERED: METHADONE HCL 5 MG TABLET (FOR DETOX USE ONLY) ONE (09:17)
[2019-10-05] MEDS ORDERED: ESCITALOPRAM OXALATE 10 MG TABLET ONE (09:18)
[2019-10-05] MEDS: PRENATAL VITAMINS W/ FOLIC ACID TABLET (FP) PO SCH (09:51)
[2019-10-05] MEDS: METHOCARBAMOL 500 MG TABLET PO PRN ×3 (09:53→22:39)
[2019-10-05] MEDS: clonazePAM 0.5 MG TABLET PO PRN ×3 (09:55→22:39)
[2019-10-05] MEDS ORDERED: METHADONE (DETOX) 10 MG, METHADONE (DETOX) 5 MG PO ONE (10:00)
[2019-10-05] MEDS: ESCITALOPRAM OXALATE 20 MG TABLET PO SCH (10:19)
--- NOTE | 2019-10-05 10:31 | EKG ---
Test Reason : Blood Pressure : / mmHG Vent. Rate : 053 BPM Atrial Rate : 053 BPM P-R Int : 174 ms QRS Dur : 108 ms QT Int : 436 ms P-R-T Axes : 044 042 035 degrees QTc Int : 409 ms SINUS BRADYCARDIA WITH SINUS ARRHYTHMIA POSSIBLE LEFT ATRIAL ENLARGEMENT BORDERLINE ECG WHEN COMPARED WITH ECG OF 06-JUL-2018 01:24, VENT. RATE HAS DECREASED BY 46 BPM QT HAS SHORTENED Confirmed by RICARDO RHODES, TATI ([id number]) on 10/05/2019 10:31:18 AM Referred By: Confirmed By:TATI SILVA MD
--- NOTE | 2019-10-05 11:41 | PN ---
[facility] CIWA - CIWA Score Nausea/Vomitin-No Nausea/No Vomiting Muscle Tremors: 1-None Visible, but [place] Anxiety: 3 Agitation: 0-Normal Activity Paroxysmal Sweats: 1-Minimal Palms Moist Orientation: 0-Oriented Tacttile Disturbances: 0-None Auditory Disturbances: 0-None Visual Disturbances: 0-None Headache: 0-None Present CIWA-Ar Total Score: 5 [facility] COWS - Scale Resting Pulse: 2= [place] 101-120 Sweatin= No chills or Flushing Restless Observation: 0= Sits Still Pupil Size: 0= Normal to Room Light Bone or Joint Aches: 1= Mild Discomfort Runny Nose/ Eye Tearin= None GI Upset > 30mins: 0= None Tremor Observation of Outstretched Hands: 1= Tremor [place], Not Seen Yawning Observation: 0= None Anxiety or Irritability: 1=Feels Anxious/Irritable Goose Flesh Skin: 0=Smooth Skin COWS Score: 5 S Progress Note (SOAP) Subjective: 34 years old male admitted on 10/02/19 for benzo and opiate withdrawal sx management treating with klonopine prn and methadone detox regiments patient received one dose of klonopine 0.5 mg feeling ok today discussed aftercare with staff 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 Objective: 10/05/19 11:43 Vital Signs Temperature 97.8 F 10/05/19 09:32 Pulse Rate 108 H 10/05/19 09:32 Respiratory Rate 18 10/05/19 09:32 Blood Pressure 122/74 10/05/19 09:32 O2 Sat by Pulse Oximetry (%) Laboratory Last Values WBC 5.7 K/mm3 (4.0-10.0) 10/03/19 07:25 RBC 4.54 M/mm3 (4.00-5.60) 10/03/19 07:25 Hgb 13.0 GM/dL (11.7-16.9) 10/03/19 07:25 Hct 39.3 % (35.4-49) 10/03/19 07:25 MCV 86.6 fl (80-96) 10/03/19 07:25 MCH 28.7 pg (25.7-33.7) 10/03/19 07:25 MCHC 33.2 g/dl (32.0-35.9) 10/03/19 07:25 RDW 13.6 % (11.9-15.9) 10/03/19 07:25 Plt Count 278 K/MM3 (134-434) D 10/03/19 07:25 MPV 7.7 fl (7.5-11.1) D 10/03/19 07:25 Sodium 140 mmol/L (136-145) 10/03/19 07:25 Potassium 4.2 mmol/L (3.5-5.1) 10/03/19 07:25 Chloride 109 mmol/L (98-107) H 10/03/19 07:25 Carbon Dioxide 27 mmol/L (21-32) 10/03/19 07:25 Anion Gap 5 MMOL/L (8-16) L 10/03/19 07:25 BUN 9.4 mg/dL (7-18) 10/03/19 07:25 Creatinine 0.8 mg/dL (0.55-1.3) 10/03/19 07:25 Est GFR (CKD-EPI)AfAm 133.20 10/03/19 07:25 Est GFR (CKD-EPI)NonAf 114.93 10/03/19 07:25 Random Glucose 86 mg/dL (74-106) 10/03/19 07:25 Calcium 8.8 mg/dL (8.5-10.1) 10/03/19 07:25 Total Bilirubin 0.3 mg/dL (0.2-1) 10/03/19 07:25 AST 18 U/L (15-37) 10/03/19 07:25 ALT 36 U/L (13-61) 10/03/19 07:25 Alkaline Phosphatase 92 U/L (45-117) 10/03/19 07:25 Total Protein 6.4 g/dl (6.4-8.2) 10/03/19 07:25 Albumin 3.3 g/dl (3.4-5.0) L 10/03/19 07:25 RPR Titer Nonreactive (NONREACTIVE) 10/03/19 07:25 lab noted Assessment: 10/05/19 11:44 benzo and opiate withdrawal Plan: klonopin prn and methadone regiments
[2019-10-05] MEDS ORDERED: hydrOXYzine PAMOATE 25 MG CAPSULE (FP) PO ONE (13:55)
[2019-10-05] MEDS: SUVOREXANT 10 MG TABLET PO PRN (22:38)
[2019-10-05] MEDS: THIAMINE HCL 100 MG TABLET (FP) PO SCH (22:40)
[2019-10-06] MEDS: clonazePAM 0.5 MG TABLET PO PRN ×3 (06:06→18:05)
[2019-10-06] MEDS: METHOCARBAMOL 500 MG TABLET PO PRN ×3 (06:06→22:07)
[2019-10-06] MEDS ORDERED: ESCITALOPRAM OXALATE 10 MG TABLET ONE (09:47)
[2019-10-06] MEDS ORDERED: METHADONE HCL 10 MG TABLET (FOR DETOX USE ONLY) PO ONE (10:00)
--- NOTE | 2019-10-06 10:31 | PN ---
[facility] CIWA - CIWA Score Nausea/Vomitin-No Nausea/No Vomiting Muscle Tremors: 1-None Visible, but [place] Anxiety: 4-Mod. Anxious/Guarded Agitation: 3 Paroxysmal Sweats: 2 Orientation: 0-Oriented Tacttile Disturbances: 1-Very Mild Itch/Numbness Auditory Disturbances: 0-None Visual Disturbances: 1-Very Mild Sensitivity Headache: 0-None Present CIWA-Ar Total Score: 12 [facility] Progress Note (SOAP) Subjective: c/o of feeling anxious, interrupted sleep, chills, body aches Objective: 10/06/19 10:31 Vital Signs Temperature 96.2 F L 10/06/19 09:19 Pulse Rate 103 H 10/06/19 09:19 Respiratory Rate 16 10/06/19 09:19 Blood Pressure 117/70 10/06/19 09:19 O2 Sat by Pulse Oximetry (%) Laboratory Last Values WBC 5.7 K/mm3 (4.0-10.0) 10/03/19 07:25 RBC 4.54 M/mm3 (4.00-5.60) 10/03/19 07:25 Hgb 13.0 GM/dL (11.7-16.9) 10/03/19 07:25 Hct 39.3 % (35.4-49) 10/03/19 07:25 MCV 86.6 fl (80-96) 10/03/19 07:25 MCH 28.7 pg (25.7-33.7) 10/03/19 07:25 MCHC 33.2 g/dl (32.0-35.9) 10/03/19 07:25 RDW 13.6 % (11.9-15.9) 10/03/19 07:25 Plt Count 278 K/MM3 (134-434) D 10/03/19 07:25 MPV 7.7 fl (7.5-11.1) D 10/03/19 07:25 Sodium 140 mmol/L (136-145) 10/03/19 07:25 Potassium 4.2 mmol/L (3.5-5.1) 10/03/19 07:25 Chloride 109 mmol/L (98-107) H 10/03/19 07:25 Carbon Dioxide 27 mmol/L (21-32) 10/03/19 07:25 Anion Gap 5 MMOL/L (8-16) L 10/03/19 07:25 BUN 9.4 mg/dL (7-18) 10/03/19 07:25 Creatinine 0.8 mg/dL (0.55-1.3) 10/03/19 07:25 Est GFR (CKD-EPI)AfAm 133.20 10/03/19 07:25 Est GFR (CKD-EPI)NonAf 114.93 10/03/19 07:25 Random Glucose 86 mg/dL (74-106) 10/03/19 07:25 Calcium 8.8 mg/dL (8.5-10.1) 10/03/19 07:25 Total Bilirubin 0.3 mg/dL (0.2-1) 10/03/19 07:25 AST 18 U/L (15-37) 10/03/19 07:25 ALT 36 U/L (13-61) 10/03/19 07:25 Alkaline Phosphatase 92 U/L (45-117) 10/03/19 07:25 Total Protein 6.4 g/dl (6.4-8.2) 10/03/19 07:25 Albumin 3.3 g/dl (3.4-5.0) L 10/03/19 07:25 RPR Titer Nonreactive (NONREACTIVE) 10/03/19 07:25 labs reviewed Assessment: 10/06/19 13:40 Aox3 no acute distress EENT WNL Full ROM ambulating in the unit withdrawal sx Plan: increase fluids continue detox continue to monitor
[2019-10-06] MEDS: ESCITALOPRAM OXALATE 20 MG TABLET PO SCH (11:08)
[2019-10-06] MEDS: PRENATAL VITAMINS W/ FOLIC ACID TABLET (FP) PO SCH (11:08)
[2019-10-06] MEDS ORDERED: hydrOXYzine PAMOATE 25 MG CAPSULE (FP) PO ONE (17:49)
--- NOTE | 2019-10-06 17:52 | PN ---
[facility] Progress Note Note: pt requesting Vistaril for insomnia/ anxiety . Denies chest pain, palpitations , SOB Vital Signs - 24 hr 10/05/19 10/06/19 10/06/19 21:28 00:30 03:30 Temperature 96.0 F L Pulse Rate 100 H Respiratory 18 18 18 Rate Blood Pressure 106/78 10/06/19 10/06/19 10/06/19 07:12 09:19 13:38 Temperature 98.6 F 96.2 F L 97.1 F L Pulse Rate 68 103 H 103 H Respiratory 18 16 18 Rate Blood Pressure 97/62 117/70 105/76 10/06/19 17:12 Temperature 96.0 F L Pulse Rate 77 Respiratory 18 Rate Blood Pressure 108/72 P : add Vistaril 25 mg x once . pt advised to f/up w/ cardiology , verbalizes understanding and agreement w/ POC.
[2019-10-06] MEDS: SUVOREXANT 10 MG TABLET PO PRN (22:07)
[2019-10-06] MEDS: THIAMINE HCL 100 MG TABLET (FP) PO SCH (22:07)
[2019-10-07] MEDS: clonazePAM 0.5 MG TABLET PO PRN (01:02)
[2019-10-07] MEDS ORDERED: METHADONE HCL 5 MG TABLET (FOR DETOX USE ONLY) PO ONE (06:00)
[2019-10-07 09:02] VITALS: BP 104/74; PULSE 100; TEMP 98.4
--- NOTE | 2019-10-07 09:31 | DS ---
[facility] Detox Discharge Summary Admission Date: 10/02/19 Discharge Date: 10/07/19 - History Present History: Opioid Dependence Additional Comments: Patient to followup with primary care provider at [facility]. Follow up with out patient referral to [facility]. - Physical Exam Results Vital Signs: Vital Signs Temperature 98.4 F 10/07/19 09:01 Pulse Rate 100 H 10/07/19 09:01 Respiratory Rate 18 10/07/19 09:01 Blood Pressure 104/74 10/07/19 09:01 O2 Sat by Pulse Oximetry (%) Pertinent Admission Physical Exam Findings: Patient stable tolerated MTD detox well. MAT reviewed reports currently not interested. No hospitalizations or falls during detox admission. AOx3 no acute distress no SI/HI EENT WNL Full ROM no gait disturbance No edema o erythema Vital Signs Temperature 98.4 F 10/07/19 09:01 Pulse Rate 100 H 10/07/19 09:01 Respiratory Rate 18 10/07/19 09:01 Blood Pressure 104/74 10/07/19 09:01 O2 Sat by Pulse Oximetry (%) Laboratory Last Values WBC 5.7 K/mm3 (4.0-10.0) 10/03/19 07:25 RBC 4.54 M/mm3 (4.00-5.60) 10/03/19 07:25 Hgb 13.0 GM/dL (11.7-16.9) 10/03/19 07:25 Hct 39.3 % (35.4-49) 10/03/19 07:25 MCV 86.6 fl (80-96) 10/03/19 07:25 MCH 28.7 pg (25.7-33.7) 10/03/19 07:25 MCHC 33.2 g/dl (32.0-35.9) 10/03/19 07:25 RDW 13.6 % (11.9-15.9) 10/03/19 07:25 Plt Count 278 K/MM3 (134-434) D 10/03/19 07:25 MPV 7.7 fl (7.5-11.1) D 10/03/19 07:25 Sodium 140 mmol/L (136-145) 10/03/19 07:25 Potassium 4.2 mmol/L (3.5-5.1) 10/03/19 07:25 Chloride 109 mmol/L (98-107) H 10/03/19 07:25 Carbon Dioxide 27 mmol/L (21-32) 10/03/19 07:25 Anion Gap 5 MMOL/L (8-16) L 10/03/19 07:25 BUN 9.4 mg/dL (7-18) 10/03/19 07:25 Creatinine 0.8 mg/dL (0.55-1.3) 10/03/19 07:25 Est GFR (CKD-EPI)AfAm 133.20 10/03/19 07:25 Est GFR (CKD-EPI)NonAf 114.93 10/03/19 07:25 Random Glucose 86 mg/dL (74-106) 10/03/19 07:25 Calcium 8.8 mg/dL (8.5-10.1) 10/03/19 07:25 Total Bilirubin 0.3 mg/dL (0.2-1) 10/03/19 07:25 AST 18 U/L (15-37) 10/03/19 07:25 ALT 36 U/L (13-61) 10/03/19 07:25 Alkaline Phosphatase 92 U/L (45-117) 10/03/19 07:25 Total Protein 6.4 g/dl (6.4-8.2) 10/03/19 07:25 Albumin 3.3 g/dl (3.4-5.0) L 10/03/19 07:25 RPR Titer Nonreactive (NONREACTIVE) 10/03/19 07:25 - Treatment Hospital Course: Detox Protocol Followed, Detoxed Safely, Responded well, Discharged Condition Good, Rehab Referral Accepted Patient has Accepted a Rehab Referral to: [facility] - Medication Discharge Medications: Ambulatory Orders Escitalopram Oxalate [Lexapro -] 20 mg PO DAILY 07/05/18 Naloxone HCl [Narcan] 4 mg NS ASDIR PRN #1 spray 10/03/19 - Diagnosis (1) Non-compliant patient Status: Acute (2) Opioid dependence with withdrawal Status: Acute (3) Sedative, hypnotic or anxiolytic dependence with withdrawal, uncomplicated Status: Acute - AMA Did Patient Leave Against Medical Advice: No
== END 2019-10-07 09:45 | disposition home or self-care (01) | DRG 773 ==
LOC: YASAS 14:25 → Y3N 16:23
PROVIDERS: ADMIT Allergy & Immunology; ATTEND Allergy & Immunology
PROC: HZ2ZZZZ Detoxification Services for Substance Abuse Treatment (ICD-10-PCS; principal; 2019-10-02)
DX: F11.23 Opioid dependence with withdrawal (principal); F13.230 Sedative, hypnotic or anxiolytic dependence with withdrawal, uncomplicated; F17.210 Nicotine dependence, cigarettes, uncomplicated; F19.282 Other psychoactive substance dependence with psychoactive substance-induced sleep disorder; F19.24 Other psychoactive substance dependence with psychoactive substance-induced mood disorder; F31.9 Bipolar disorder, unspecified; Z91.19 Patient's noncompliance with other medical treatment and regimen
CPT/HCPCS: 36415; 80053; 85027; 86593; 93005; 93010

== ENCOUNTER 2020-03-31 23:44 | Inpatient (IN) | payer OTHER ==
--- NOTE | 2020-04-01 01:03 | HP ---
COWS - Scale Resting Pulse: 0= [place] 80 or Below Sweatin=Flushed/Facial Moisture Restless Observation: 1= Difficult to Sit Still Pupil Size: 0= Normal to Room Light Bone or Joint Aches: 2= Severe Diffuse Aches Runny Nose/ Eye Tearin= Nasal Congestion GI Upset > 30mins: 3= Vomiting/Diarrhea (vomiting x 2, diarrhea x 3) Tremor Observation: 2= Slight Tremor Visible Yawning Observation: 0= None Anxiety or Irritability: 4=Extreme Anxiety Goose Flesh Skin: 0=Smooth Skin COWS Score: 15 CIWA Score - Admission Criteria OAS Guidelines: Admission for Medically Managed Detox: Requires at least one of the followin. CIWA greater than 12 2. Seizures within the past 24 hours 3. Delirium tremens within the past 24 hours 4. Hallucinations within the past 24 hours 5. Acute intervention needed for co occurring medical disorder 6. Acute intervention needed for co occurring psychiatric disorder 7. Severe withdrawal that cannot be handled at a lower level of care (continued vomiting, continued diarrhea, abnormal vital signs) requiring intravenous medication and/or fluids 8. Admitting History and Physical - Smoking History Smoking history: Current every day smoker Have you smoked in the past 12 months: Yes Aproximately how many cigarettes per day: 20 - Alcohol/Substance Use Hx Alcohol Use: No History of Substance Use: reports: Cocaine, Heroin Admission ROS [facility] Chief Complaint: Seeking admission to detox from heroin Allergies/Adverse Reactions: Allergies Allergy/AdvReac Type Severity Reaction Status Date / Time No Known Allergies Allergy Verified 02/21/20 17:12 History of Present Illness: 35 years old male with a 6 years history of heroin dependence is seeking admission to detox from heroin. His last detox was for the period 02/21/2020 - 02/26/2020 and he reports that he relapsed a week later. Patient reports medical history of seizures and reports psych. history of depression, anxiety and bipolar disorder. He denies suicidal ideation at this time. He reports that he overdosed about 2 weeks ago. He uses 4 bundles of heroin daily from age 29 years. He is employed, lives with father in [place] and denies legal issues. His urine is positive for FEN, MOP and Cocaine and his COWS score is 15. Patient reports that he was using klonopin, a 2nd urine test done and was negative for benzo. Exam Limitations: No Limitations - Ebola screening Have you traveled outside of the country in the last 21 days: No Have you had contact with anyone from an Ebola affected area: No Have you been sick,other than usual withdrawal symptoms: No Do you have a fever: No - Review of Systems Constitutional: Malaise, Night Sweats, Changes in sleep EENT: reports: No Symptoms Reported Respiratory: reports: No Symptoms reported Cardiac: reports: No Symptoms Reported GI: reports: Diarrhea (x 4), Nausea, Poor Appetite, Poor Fluid Intake, Vomiting (x 2), Abdominal cramping : reports: No Symptoms Reported Musculoskeletal: reports: Joint Pain, Muscle Pain Integumentary: reports: Flushing Neuro: reports: Headache, Tremors Endocrine: reports: No Symptoms Reported Hematology: reports: No Symptoms Reported Psychiatric: reports: Mood/Affect Appropiate, Orientated x3, Agitated, Anxious Other Systems: Reviewed and Negative Patient History - Patient Medical History Hx Anemia: No Hx Asthma: No Hx Chronic Obstructive Pulmonary Disease (COPD): No Hx Cancer: No Hx Cardiac Disorders: No Hx Congestive Heart Failure: No Hx Hypertension: No Hx Hypercholesterolemia: No Hx Pacemaker: No HX Cerebrovascular Accident: No Hx Seizures: Yes (Alcohol related seizures) Hx Dementia: No Hx Diabetes: No Hx Gastrointestinal Disorders: No Hx Liver Disease: No Hx Genitourinary Disorders: No Hx Sexually Transmitted Disorders: No Hx Renal Disease (ESRD): No Hx Thyroid Disease: No Hx Human Immunodeficiency Virus (HIV): No Hx Hepatitis C: No Hx Depression: Yes Hx Suicide Attempt: No (Denieas suicidal ideation at this time) Hx Bipolar Disorder: Yes Hx Schizophrenia: No - Patient Surgical History Past Surgical History: Yes Hx Neurologic Surgery: No Hx Cataract Extraction: No Hx Cardiac Surgery: No Hx Lung Surgery: No Hx Breast Surgery: No Hx Breast Biopsy: No Hx Abdominal Surgery: No Hx Appendectomy: No Hx Cholecystectomy: No Hx Genitourinary Surgery: No Hx Section: No Hx Orthopedic Surgery: Yes Other Surgical History: nasal bridge fx 2015 Anesthesia Reaction: No - PPD History Previous Implant?: Yes (PPD POSITIVE) Implanted On Prior R Admission?: No Date: 07/28/17 PPD to be Administered?: No - Reproductive History Patient is a Female of Child Bearing Age (11 -55 yrs old): No (male) - Smoking Cessation Smoking history: Current every day smoker Have you smoked in the past 12 months: Yes Aproximately how many cigarettes per day: 20 Cigars Per Day: 0 Hx Chewing Tobacco Use: No Initiated information on smoking cessation: Yes 'Breaking Loose' booklet given: 04/01/20 - Substance & Tx. History Hx Alcohol Use: No Hx Substance Use: Yes Substance Use Type: Cocaine, Heroin Hx Substance Use Treatment: No - Substances abused Heroin Substance route: Inhalation Frequency: Daily Amount used: 4 bundles Age of first use: 29 Date of last use: 04/01/20 Admission Physical Exam [facility] - Physical General Appearance: Yes: Moderate Distress, Tremorous, Sweating, Anxious HEENTM: Yes: Within Normal Limits Respiratory: Yes: Lungs Clear, Normal Breath Sounds, No Respiratory Distress Neck: Yes: Within Normal Limits Breast: Yes: Breast Exam Deferred Cardiology: Yes: Bradycardia Abdominal: Yes: Normal Bowel Sounds, Soft Genitourinary: Yes: Within Normal Limits Back: Yes: Normal Inspection Musculoskeletal: Yes: Muscle Pain Extremities: Yes: Tremors Neurological: Yes: Within Normal Limits Integumentary: Yes: Warm Lymphatic: Yes: Within Normal Limits - Diagnostic (1) Nicotine dependence Current Visit: Yes Status: Chronic Qualifiers: Nicotine product type: cigarettes Substance use status: uncomplicated Qualified Code(s): F17.210 - Nicotine dependence, cigarettes, uncomplicated (2) Opioid dependence with withdrawal Current Visit: Yes Status: Acute (3) Anxiety Current Visit: Yes Status: Chronic (4) Bipolar disorder Current Visit: Yes Status: Chronic (5) Depression Current Visit: Yes Status: Chronic Qualifiers: Depression Type: unspecified Qualified Code(s): F32.9 - Major depressive disorder, single episode, unspecified Cleared for Admission [facility] - Detox or Rehab [facility] Level of Care: Medically Managed Detox Regimen/Protocol: Methadone Claeared for Rehab Admission: No Breathalyzer - Breathalyzer Breathalyzer: 0 Urine Drug Screen - Test Device Lot number: [id number] Expiration date: 05/14/21 - Control Is test valid?: Yes - Results Drug screen NEGATIVE: No Urine drug screen results: SAM-Cocaine, FEN-Fentanyl, MOP-Opiates Inpatient Rehab Admission - Rehab Decision to Admit Inpatient rehab admission?: No
[2020-04-01] MEDS ORDERED: MAGNESIUM CITRATE 300 ML BOTTLE PO PRN (01:36)
[2020-04-01] MEDS ORDERED: MENTHOL/PHENOL 1 EACH UD MM PRN (01:36)
[2020-04-01] MEDS ORDERED: MAGNESIUM HYDROX 2400MG/30ML ORAL SUSPENSION 30 ML CUP PO PRN (01:36)
[2020-04-01] MEDS ORDERED: NICOTINE POLACRILEX 2 MG GUM BUC PRN (01:36)
[2020-04-01] MEDS ORDERED: MAG HYDROX/AL HYDROX/SIMETH 30 ML UNIT-DOSE CUP PO PRN (01:36)
[2020-04-01] MEDS ORDERED: ONDANSETRON *ODT* 4 MG TABLET SL ONE (01:36)
[2020-04-01] MEDS ORDERED: ACETAMINOPHEN 325 MG TABLET (FP) PO PRN ×2 (01:36)
[2020-04-01] MEDS ORDERED: METHADONE HCL 10 MG TABLET (FOR DETOX USE ONLY) PO ONE (03:00)
[2020-04-01] MEDS: METHOCARBAMOL 500 MG TABLET PO PRN ×4 (03:01→23:10)
[2020-04-01] MEDS: NICOTINE 21 MG/24 HOURS TOPICAL PATCH TD SCH (10:38)
[2020-04-01] MEDS: PRENATAL VITAMINS W/ FOLIC ACID TABLET (FP) PO SCH (10:38)
[2020-04-01] MEDS: hydrOXYzine PAMOATE 25 MG CAPSULE (FP) PO PRN ×2 (10:41→15:39)
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
--- NOTE | 2020-04-01 12:20 | PN ---
[facility] Progress Note Note: Patient admitted after midnight for opioid dependence with uncomplicated withdrawal. Patient reports withdrawal sxs of joint pain, stomachache, diarrhea, interrupted sleep, tiredness. Encouraged PO water hydration, monitor VS, continue detox protocol and continue to monitor patient. VSS: 97.1, 65, 16, 98/63, O2 sat RA 99%.
[2020-04-01] MEDS: cloNIDine HCL 0.1 MG TABLET PO PRN (17:11)
--- NOTE | 2020-04-01 20:02 | PN ---
S Progress Note Note: severe withdrawal symptom Vital Signs Temperature 97.8 F 04/01/20 16:39 Pulse Rate 67 04/01/20 16:39 Respiratory Rate 18 04/01/20 16:39 Blood Pressure 102/60 04/01/20 16:39 O2 Sat by Pulse Oximetry (%) 97 04/01/20 13:09 to add valium 10 mgs po q 4hrs prn for 72 hrs for seere withdrawal
[2020-04-01] MEDS: busPIRone HCL 5 MG TABLET PO SCH (22:03)
[2020-04-01] MEDS: traZODone HCL 50 MG TABLET (FP) PO SCH (22:03)
[2020-04-01] MEDS: THIAMINE HCL 100 MG TABLET (FP) PO SCH (22:03)
[2020-04-01] MEDS: diazePAM 5 MG TABLET PO PRN (22:06)
[2020-04-01] MEDS: MELATONIN 5 MG TABLETS PO SCH (22:08)
[2020-04-01] MEDS: BISMUTH SUBSALICYLATE 524 MG/30 ML UD PO PRN (22:08)
[2020-04-01] MEDS: IBUPROFEN 400 MG TABLET (FP) PO PRN (23:10)
[2020-04-02] MEDS: hydrOXYzine PAMOATE 25 MG CAPSULE (FP) PO PRN ×3 (01:18→22:58)
[2020-04-02] MEDS ORDERED: METHADONE HCL 5 MG TABLET (FOR DETOX USE ONLY) ONE (04:11)
[2020-04-02] MEDS ORDERED: METHADONE HCL 10 MG TABLET (FOR DETOX USE ONLY) ONE (04:11)
[2020-04-02] MEDS ORDERED: METHADONE (DETOX) 20 MG, METHADONE (DETOX) 5 MG PO ONE (06:00)
[2020-04-02 10:12] LABS: HEMOGLOBIN 12.7 GM/dL (11.7-16.9); MCH 28.2 pg (25.7-33.7); MCHC 32.5 g/dl (32.0-35.9); MEAN CELL VOLUME 86.7 fl (80-96); MEAN PLT VOLUME 9.1 fl (7.5-11.1); PLATELET COUNT 207 K/MM3 (134-434); RBC 4.49 M/mm3 (4.00-5.60); RDW 14.4 % (11.9-15.9); WHITE BLOOD COUNT 3.8 K/mm3 (4.0-10.0)
[2020-04-02 10:27] LABS: ALBUMIN 3.7 g/dl (3.4-5.0); BILIRUBIN,TOTAL 0.4 mg/dL (0.2-1); BLOOD UREA NITROGEN 11.2 mg/dL (7-18); CALCIUM 8.9 mg/dL (8.5-10.1); CREATININE 0.9 mg/dL (0.55-1.3); TOT PROT 6.7 g/dl (6.4-8.2)
--- NOTE | 2020-04-02 12:12 | PN ---
S COWS - Scale Resting Pulse: 0= [place] 80 or Below Sweatin= No chills or Flushing Restless Observation: 3= Extraneous Movement Pupil Size: 1= Pupils >than Normal Bone or Joint Aches: 2= Severe Diffuse Aches Runny Nose/ Eye Tearin= Nasal Congestion GI Upset > 30mins: 2= Nausea/Diarrhea Tremor Observation of Outstretched Hands: 2= Slight Tremor Visible Yawning Observation: 1= 1-2x During Session Anxiety or Irritability: 2=Irritable/Anxious Goose Flesh Skin: 0=Smooth Skin COWS Score: 14 S Progress Note (SOAP) Subjective: alert,irritable,anxious,interrupted sleep,pain in the body and back,feel weak Objective: 04/02/20 12:10 Vital Signs Temperature 97.0 F L 04/02/20 05:00 Pulse Rate 74 04/02/20 05:00 Respiratory Rate 18 04/02/20 05:00 Blood Pressure 115/55 L 04/02/20 05:00 O2 Sat by Pulse Oximetry (%) 99 04/02/20 05:00 ekg sinus bradycardia, rate 41 no chest pain,no sob,no dizziness Laboratory Last Values WBC 3.8 K/mm3 (4.0-10.0) L 04/02/20 08:15 RBC 4.49 M/mm3 (4.00-5.60) 04/02/20 08:15 Hgb 12.7 GM/dL (11.7-16.9) 04/02/20 08:15 Hct 39.0 % (35.4-49) 04/02/20 08:15 MCV 86.7 fl (80-96) 04/02/20 08:15 MCH 28.2 pg (25.7-33.7) 04/02/20 08:15 MCHC 32.5 g/dl (32.0-35.9) 04/02/20 08:15 RDW 14.4 % (11.9-15.9) 04/02/20 08:15 Plt Count 207 K/MM3 (134-434) D 04/02/20 08:15 MPV 9.1 fl (7.5-11.1) D 04/02/20 08:15 Sodium 143 mmol/L (136-145) 04/02/20 08:15 Potassium 4.0 mmol/L (3.5-5.1) 04/02/20 08:15 Chloride 109 mmol/L (98-107) H 04/02/20 08:15 Carbon Dioxide 29 mmol/L (21-32) 04/02/20 08:15 Anion Gap 5 MMOL/L (8-16) L 04/02/20 08:15 BUN 11.2 mg/dL (7-18) 04/02/20 08:15 Creatinine 0.9 mg/dL (0.55-1.3) 04/02/20 08:15 Est GFR (CKD-EPI)AfAm 126.02 04/02/20 08:15 Est GFR (CKD-EPI)NonAf 108.73 04/02/20 08:15 Random Glucose 58 mg/dL (74-106) L 04/02/20 08:15 Calcium 8.9 mg/dL (8.5-10.1) 04/02/20 08:15 Total Bilirubin 0.4 mg/dL (0.2-1) 04/02/20 08:15 AST 12 U/L (15-37) L 04/02/20 08:15 ALT 17 U/L (13-61) 04/02/20 08:15 Alkaline Phosphatase 78 U/L (45-117) 04/02/20 08:15 Total Protein 6.7 g/dl (6.4-8.2) 04/02/20 08:15 Albumin 3.7 g/dl (3.4-5.0) 04/02/20 08:15 Syphilis Serology Non-reactive (NONREACTIVE) 04/01/20 07:25 Assessment: 04/02/20 12:13 withdrawal symptom Plan: continue detox methadone regimen,encourage oral fluid,changed methadone regimen to give at 1000, repeat ekg today,close monitoring
[2020-04-02] MEDS: PRENATAL VITAMINS W/ FOLIC ACID TABLET (FP) PO SCH (12:33)
[2020-04-02] MEDS: ESCITALOPRAM OXALATE 10 MG TABLET PO SCH (12:33)
[2020-04-02] MEDS: busPIRone HCL 5 MG TABLET PO SCH ×2 (12:33→21:00)
[2020-04-02] MEDS: NICOTINE 21 MG/24 HOURS TOPICAL PATCH TD SCH (12:33)
[2020-04-02] MEDS: BISMUTH SUBSALICYLATE 524 MG/30 ML UD PO PRN (14:25)
[2020-04-02] MEDS: METHOCARBAMOL 500 MG TABLET PO PRN ×2 (14:31→21:03)
[2020-04-02] MEDS: diazePAM 5 MG TABLET PO PRN (20:46)
[2020-04-02] MEDS: traZODone HCL 50 MG TABLET (FP) PO SCH (21:00)
[2020-04-02] MEDS: MELATONIN 5 MG TABLETS PO SCH (21:01)
[2020-04-02] MEDS: THIAMINE HCL 100 MG TABLET (FP) PO SCH (21:01)
--- NOTE | 2020-04-03 06:49 | EKG ---
Test Reason : Blood Pressure : / mmHG Vent. Rate : 041 BPM Atrial Rate : 041 BPM P-R Int : 178 ms QRS Dur : 098 ms QT Int : 502 ms P-R-T Axes : 056 069 055 degrees QTc Int : 414 ms MARKED SINUS BRADYCARDIA INCOMPLETE RIGHT BUNDLE BRANCH BLOCK ABNORMAL ECG WHEN COMPARED WITH ECG OF 02-OCT-2019 16:34, NO SIGNIFICANT CHANGE WAS FOUND Confirmed by Elisabeth Castrejon ([id number]) on 04/02/2020 12:28:29 PM Referred By: Confirmed By:Elisabeth Castrejon
[2020-04-03] MEDS: METHOCARBAMOL 500 MG TABLET PO PRN ×3 (07:36→22:45)
[2020-04-03] MEDS: hydrOXYzine PAMOATE 25 MG CAPSULE (FP) PO PRN ×3 (07:36→22:44)
[2020-04-03] MEDS: NICOTINE 21 MG/24 HOURS TOPICAL PATCH TD SCH (09:14)
[2020-04-03] MEDS: ESCITALOPRAM OXALATE 10 MG TABLET PO SCH (09:15)
[2020-04-03] MEDS: PRENATAL VITAMINS W/ FOLIC ACID TABLET (FP) PO SCH (09:15)
[2020-04-03] MEDS ORDERED: METHADONE (DETOX) 10 MG, METHADONE (DETOX) 5 MG PO ONE (10:00)
[2020-04-03] MEDS ORDERED: METHADONE HCL 10 MG TABLET (FOR DETOX USE ONLY) PO ONE ×2 (10:00)
[2020-04-03] MEDS: busPIRone HCL 10 MG TABLET (FP) PO SCH ×2 (10:29→22:44)
--- NOTE | 2020-04-03 12:20 | PN ---
S COWS - Scale Resting Pulse: 0= [place] 80 or Below Sweatin= No chills or Flushing Restless Observation: 0= Sits Still Pupil Size: 1= Pupils >than Normal Bone or Joint Aches: 2= Severe Diffuse Aches Runny Nose/ Eye Tearin= Nasal Congestion GI Upset > 30mins: 2= Nausea/Diarrhea Tremor Observation of Outstretched Hands: 2= Slight Tremor Visible Yawning Observation: 1= 1-2x During Session Anxiety or Irritability: 2=Irritable/Anxious Goose Flesh Skin: 0=Smooth Skin COWS Score: 11 S Progress Note (SOAP) Subjective: alert,irritable,anxious,interrupted sleep,pain in the body and back Objective: 04/03/20 12:19 Vital Signs Temperature 97.8 F 04/03/20 08:45 Pulse Rate 79 04/03/20 08:45 Respiratory Rate 17 04/03/20 08:45 Blood Pressure 109/70 04/03/20 08:45 O2 Sat by Pulse Oximetry (%) 98 04/03/20 08:45 04/03/20 12:27 Laboratory Last Values WBC 3.8 K/mm3 (4.0-10.0) L 04/02/20 08:15 RBC 4.49 M/mm3 (4.00-5.60) 04/02/20 08:15 Hgb 12.7 GM/dL (11.7-16.9) 04/02/20 08:15 Hct 39.0 % (35.4-49) 04/02/20 08:15 MCV 86.7 fl (80-96) 04/02/20 08:15 MCH 28.2 pg (25.7-33.7) 04/02/20 08:15 MCHC 32.5 g/dl (32.0-35.9) 04/02/20 08:15 RDW 14.4 % (11.9-15.9) 04/02/20 08:15 Plt Count 207 K/MM3 (134-434) D 04/02/20 08:15 MPV 9.1 fl (7.5-11.1) D 04/02/20 08:15 Sodium 143 mmol/L (136-145) 04/02/20 08:15 Potassium 4.0 mmol/L (3.5-5.1) 04/02/20 08:15 Chloride 109 mmol/L (98-107) H 04/02/20 08:15 Carbon Dioxide 29 mmol/L (21-32) 04/02/20 08:15 Anion Gap 5 MMOL/L (8-16) L 04/02/20 08:15 BUN 11.2 mg/dL (7-18) 04/02/20 08:15 Creatinine 0.9 mg/dL (0.55-1.3) 04/02/20 08:15 Est GFR (CKD-EPI)AfAm 126.02 04/02/20 08:15 Est GFR (CKD-EPI)NonAf 108.73 04/02/20 08:15 Random Glucose 58 mg/dL (74-106) L 04/02/20 08:15 Calcium 8.9 mg/dL (8.5-10.1) 04/02/20 08:15 Total Bilirubin 0.4 mg/dL (0.2-1) 04/02/20 08:15 AST 12 U/L (15-37) L 04/02/20 08:15 ALT 17 U/L (13-61) 04/02/20 08:15 Alkaline Phosphatase 78 U/L (45-117) 04/02/20 08:15 Total Protein 6.7 g/dl (6.4-8.2) 04/02/20 08:15 Albumin 3.7 g/dl (3.4-5.0) 04/02/20 08:15 Syphilis Serology Non-reactive (NONREACTIVE) 04/01/20 07:25 04/03/20 12:28 ekg sinus bradycardia 50/min no chest pain,no sob,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
[2020-04-03] MEDS: cloNIDine HCL 0.1 MG TABLET PO PRN (13:12)
[2020-04-03] MEDS: diazePAM 5 MG TABLET PO PRN ×2 (17:35→22:45)
[2020-04-03] MEDS: traZODone HCL 50 MG TABLET (FP) PO SCH (22:45)
[2020-04-03] MEDS: MELATONIN 5 MG TABLETS PO SCH (22:45)
[2020-04-03] MEDS: THIAMINE HCL 100 MG TABLET (FP) PO SCH (22:45)
[2020-04-04] MEDS ORDERED: METHADONE HCL 10 MG TABLET (FOR DETOX USE ONLY) ONE (09:02)
[2020-04-04] MEDS ORDERED: METHADONE HCL 5 MG TABLET (FOR DETOX USE ONLY) ONE (09:02)
[2020-04-04] MEDS ORDERED: METHADONE (DETOX) 10 MG, METHADONE (DETOX) 5 MG PO ONE (10:00)
[2020-04-04] MEDS: busPIRone HCL 10 MG TABLET (FP) PO SCH (10:37)
[2020-04-04] MEDS: ESCITALOPRAM OXALATE 10 MG TABLET PO SCH (10:38)
[2020-04-04] MEDS: NICOTINE 21 MG/24 HOURS TOPICAL PATCH TD SCH (10:39)
[2020-04-04] MEDS: PRENATAL VITAMINS W/ FOLIC ACID TABLET (FP) PO SCH (10:39)
[2020-04-04] MEDS: METHOCARBAMOL 500 MG TABLET PO PRN (10:41)
[2020-04-04] MEDS: diazePAM 5 MG TABLET PO PRN ×2 (10:41→15:32)
[2020-04-04] MEDS: IBUPROFEN 400 MG TABLET (FP) PO PRN (10:41)
[2020-04-04] MEDS ORDERED: FLUTICASONE PROP 0.05% 16 GM NASAL SPRAY NS SCH (11:45)
--- NOTE | 2020-04-04 11:51 | PN ---
[facility] COWS - Scale Resting Pulse: 1= [place] 81-100 Sweatin= No chills or Flushing Restless Observation: 0= Sits Still Pupil Size: 0= Normal to Room Light Bone or Joint Aches: 1= Mild Discomfort Runny Nose/ Eye Tearin= Nasal Congestion GI Upset > 30mins: 1= Stomach Cramp Tremor Observation of Outstretched Hands: 1= Tremor Coward, Not Seen Yawning Observation: 1= 1-2x During Session Anxiety or Irritability: 1=Feels Anxious/Irritable Goose Flesh Skin: 0=Smooth Skin COWS Score: 7 [facility] Progress Note (SOAP) Subjective: alert,irritable,anxious,interrupted sleep,aching pain Objective: 04/04/20 11:49 Vital Signs Temperature 98 F 04/04/20 08:43 Pulse Rate 87 04/04/20 08:43 Respiratory Rate 18 04/04/20 08:43 Blood Pressure 114/64 04/04/20 08:43 O2 Sat by Pulse Oximetry (%) 97 04/04/20 05:24 Assessment: 04/04/20 11:49 withdrawal symptom but less Plan: continue detox methadone regimen,discharge in am,flonase for nasal congestion
[2020-04-04 13:25] VITALS: PULSE 86; TEMP 98
[2020-04-04 17:34] VITALS: BP 97/66
--- NOTE | 2020-04-04 21:17 | DS ---
[facility] Detox Discharge Summary Admission Date: 04/01/20 - History Additional Comments: ADVISED BY NURSING THAT PT IS DEMANDING TO LEAVE IMMEDIATELY . PT STATES HE IS LEAVING THE COUNTRY IN 2 DAYS AND HAS A LOT OF THINGS TO DO AND NEEDS TO LEAVE , AND HE IS NOT WILLING TO COMPLETE [place]. RISKS WERE DISCUSSED , PT VERBALIZED UNDERSTANDING AND INDICATED THAT HE WISHED TO PROCEED WITH THE D/C . AMBULATING FREELY ON THE FLOOR , DRESSED IN HIS OWN CLOTHES . Vital Signs - 24 hr 04/04/20 04/04/20 04/04/20 05:24 08:43 12:20 Temperature 97.7 F 98 F 98.0 F Pulse Rate 69 87 86 Respiratory 18 18 18 Rate Blood Pressure 94/59 L 114/64 119/65 O2 Sat by Pulse 97 96 Oximetry (%) 04/04/20 16:33 Temperature 98.0 F Pulse Rate 86 Respiratory 18 Rate Blood Pressure 97/66 O2 Sat by Pulse Oximetry (%) - Physical Exam Results Vital Signs: Vital Signs Temperature 98.0 F 04/04/20 16:33 Pulse Rate 86 04/04/20 16:33 Respiratory Rate 18 04/04/20 16:33 Blood Pressure 97/66 04/04/20 16:33 O2 Sat by Pulse Oximetry (%) 96 04/04/20 12:20 - Medication Discharge Medications: Ambulatory Orders Buspirone HCl [Buspar -] 10 mg PO BID 01/09/20 Escitalopram Oxalate [Lexapro -] 10 mg PO DAILY 01/09/20 Hydroxyzine HCl 25 mg PO Q4H PRN 01/09/20 traZODone HCL [Trazodone HCl] 100 mg PO HS 01/09/20 - AMA Did Patient Leave Against Medical Advice: Yes
[2020-04-05] MEDS ORDERED: METHADONE HCL 10 MG TABLET (FOR DETOX USE ONLY) PO ONE ×2 (06:00→10:00)
[2020-04-05] MEDS ORDERED: ESCITALOPRAM OXALATE 20 MG TABLET PO SCH (10:00)
--- NOTE | 2020-04-05 12:14 | EKG ---
Test Reason : Blood Pressure : / mmHG Vent. Rate : 044 BPM Atrial Rate : 044 BPM P-R Int : 152 ms QRS Dur : 102 ms QT Int : 466 ms P-R-T Axes : 031 065 053 degrees QTc Int : 398 ms MARKED SINUS BRADYCARDIA INCOMPLETE RIGHT BUNDLE BRANCH BLOCK ABNORMAL ECG WHEN COMPARED WITH ECG OF 02-APR-2020 09:35, NO SIGNIFICANT CHANGE WAS FOUND Confirmed by BETO ADAME MD ([id number]) on 04/05/2020 12:14:20 PM Referred By: Confirmed By:BETO ADAME MD
[2020-04-06] MEDS ORDERED: METHADONE HCL 5 MG TABLET (FOR DETOX USE ONLY) PO ONE (06:00)
== END 2020-04-04 17:06 | disposition left against medical advice (07) | DRG 770 ==
LOC: YASAS 23:44 → Y6N 04-01 01:16
PROVIDERS: ADMIT Allergy & Immunology; ATTEND Allergy & Immunology
PROC: HZ2ZZZZ Detoxification Services for Substance Abuse Treatment (ICD-10-PCS; principal; 2020-04-01)
DX: F11.23 Opioid dependence with withdrawal (principal); F17.210 Nicotine dependence, cigarettes, uncomplicated; F31.9 Bipolar disorder, unspecified; F19.282 Other psychoactive substance dependence with psychoactive substance-induced sleep disorder; F19.24 Other psychoactive substance dependence with psychoactive substance-induced mood disorder; F41.9 Anxiety disorder, unspecified; R00.1 Bradycardia, unspecified; Z62.810 Personal history of physical and sexual abuse in childhood
CPT/HCPCS: 36415; 80053; 85027; 86780; 93005; 93010; J0735; Q0162; U0003

== ENCOUNTER 2021-02-22 19:04 | Inpatient (IN) | payer OTHER ==
[2021-02-22 20:02] VITALS: BMI 26.0
[2021-02-22] MEDS ORDERED: MAGNESIUM CITRATE 300 ML BOTTLE PO PRN (20:28)
[2021-02-22] MEDS ORDERED: METHADONE HCL 10 MG TABLET (FOR DETOX USE ONLY) PO ONE (20:28)
[2021-02-22] MEDS ORDERED: ACETAMINOPHEN 325 MG TABLET (FP) PO PRN ×2 (20:28)
[2021-02-22] MEDS ORDERED: ONDANSETRON *ODT* 4 MG TABLET SL PRN (20:28)
[2021-02-22] MEDS ORDERED: MAG HYDROX/AL HYDROX/SIMETH 30 ML UNIT-DOSE CUP PO PRN (20:28)
[2021-02-22] MEDS ORDERED: BISMUTH SUBSALICYLATE 524 MG/30 ML PO PRN (20:28)
[2021-02-22] MEDS ORDERED: IBUPROFEN 400 MG TABLET (FP) PO PRN (20:28)
[2021-02-22] MEDS ORDERED: MENTHOL/PHENOL 1 EACH UD MM PRN (20:28)
[2021-02-22] MEDS ORDERED: hydrOXYzine PAMOATE 25 MG CAPSULE (FP) PO SCH (22:00)
[2021-02-22] MEDS: hydrOXYzine PAMOATE 25 MG CAPSULE (FP) PO PRN (22:54)
[2021-02-22] MEDS: THIAMINE HCL 100 MG TABLET (FP) PO SCH (22:54)
[2021-02-22] MEDS: MELATONIN 5 MG TABLETS PO SCH (22:57)
[2021-02-23] MEDS ORDERED: METHADONE (DETOX) 20 MG, METHADONE (DETOX) 5 MG PO ONE (10:00)
[2021-02-23 10:05] LABS: HEMATOCRIT 38.3 % (35.4-49); HEMOGLOBIN 13.1 GM/dL (11.7-16.9); MCH 29.3 pg (25.7-33.7); MCHC 34.2 g/dl (32.0-35.9); MEAN CELL VOLUME 85.7 fl (80-96); MEAN PLT VOLUME 7.3 fl (7.5-11.1); PLATELET COUNT 222 K/MM3 (134-434); RBC 4.46 M/mm3 (4.00-5.60); RDW 14.2 % (11.9-15.9); WHITE BLOOD COUNT 5.5 K/mm3 (4.0-10.0)
[2021-02-23 10:22] LABS: BLOOD UREA NITROGEN 10.3 mg/dL (7-18)
[2021-02-23 10:24] LABS: ALBUMIN 3.4 g/dl (3.4-5.0); CALCIUM 8.9 mg/dL (8.5-10.1)
[2021-02-23 10:27] LABS: BILIRUBIN,TOTAL 0.2 mg/dL (0.2-1)
[2021-02-23 10:28] LABS: CREATININE 0.6 mg/dL (0.55-1.3)
[2021-02-23] MEDS ORDERED: METHADONE HCL 5 MG TABLET (FOR DETOX USE ONLY) ONE (10:28)
[2021-02-23] MEDS: PRENATAL VITAMINS W/ FOLIC ACID TABLET (FP) PO SCH (10:28)
[2021-02-23] MEDS ORDERED: METHADONE HCL 10 MG TABLET (FOR DETOX USE ONLY) ONE (10:28)
[2021-02-23] MEDS: hydrOXYzine PAMOATE 25 MG CAPSULE (FP) PO PRN (10:28)
[2021-02-23 10:29] LABS: TOT PROT 6.4 g/dl (6.4-8.2)
[2021-02-23] MEDS: METHOCARBAMOL 500 MG TABLET PO PRN ×2 (10:31→22:25)
[2021-02-23] MEDS: MELATONIN 5 MG TABLETS PO SCH (22:22)
[2021-02-23] MEDS: THIAMINE HCL 100 MG TABLET (FP) PO SCH (22:22)
[2021-02-23] MEDS: cloNIDine HCL 0.1 MG TABLET PO PRN (22:25)
[2021-02-24] MEDS ORDERED: ESCITALOPRAM OXALATE 10 MG TABLET ONE ×2 (09:18→10:35)
[2021-02-24] MEDS ORDERED: METHADONE HCL 10 MG TABLET (FOR DETOX USE ONLY) PO ONE (10:00)
[2021-02-24] MEDS: busPIRone HCL 10 MG TABLET (FP) PO SCH ×2 (10:33→21:58)
[2021-02-24] MEDS: hydrOXYzine PAMOATE 50 MG CAPSULE (FP) PO PRN ×2 (10:33→14:45)
[2021-02-24] MEDS: PRENATAL VITAMINS W/ FOLIC ACID TABLET (FP) PO SCH (10:33)
[2021-02-24] MEDS: ESCITALOPRAM OXALATE 20 MG TABLET PO SCH (10:35)
[2021-02-24] MEDS: METHOCARBAMOL 500 MG TABLET PO PRN ×2 (14:45→22:01)
[2021-02-24] MEDS: NICOTINE POLACRILEX 2 MG GUM BUC PRN ×2 (17:26→22:06)
[2021-02-24] MEDS: THIAMINE HCL 100 MG TABLET (FP) PO SCH (21:58)
[2021-02-24] MEDS: traZODone HCL 100 MG TABLET (FP) PO SCH (21:59)
[2021-02-24] MEDS: MELATONIN 5 MG TABLETS PO SCH (21:59)
[2021-02-24] MEDS: cloNIDine HCL 0.1 MG TABLET PO PRN (22:01)
[2021-02-24] MEDS: MAGNESIUM HYDROX 2400MG/30ML ORAL SUSPENSION 30 ML CUP PO PRN (22:04)
[2021-02-25] MEDS: hydrOXYzine PAMOATE 50 MG CAPSULE (FP) PO PRN ×4 (06:05→22:00)
[2021-02-25] MEDS ORDERED: ESCITALOPRAM OXALATE 10 MG TABLET ONE (09:08)
[2021-02-25] MEDS: MAGNESIUM HYDROX 2400MG/30ML ORAL SUSPENSION 30 ML CUP PO PRN (09:52)
[2021-02-25] MEDS: METHOCARBAMOL 500 MG TABLET PO PRN ×2 (09:52→21:59)
[2021-02-25] MEDS: PRENATAL VITAMINS W/ FOLIC ACID TABLET (FP) PO SCH (09:53)
[2021-02-25] MEDS: ESCITALOPRAM OXALATE 20 MG TABLET PO SCH (09:53)
[2021-02-25] MEDS: busPIRone HCL 10 MG TABLET (FP) PO SCH ×2 (09:53→21:58)
[2021-02-25] MEDS ORDERED: METHADONE (DETOX) 10 MG, METHADONE (DETOX) 5 MG PO ONE (10:00)
[2021-02-25] MEDS ORDERED: METHADONE HCL 10 MG TABLET (FOR DETOX USE ONLY) PO ONE (10:00)
[2021-02-25] MEDS: NICOTINE POLACRILEX 2 MG GUM BUC PRN (17:43)
[2021-02-25] MEDS: traZODone HCL 100 MG TABLET (FP) PO SCH (21:58)
[2021-02-25] MEDS: THIAMINE HCL 100 MG TABLET (FP) PO SCH (21:58)
[2021-02-25] MEDS: MELATONIN 5 MG TABLETS PO SCH (21:59)
[2021-02-26] MEDS ORDERED: METHADONE HCL 5 MG TABLET (FOR DETOX USE ONLY) PO ONE (06:00)
[2021-02-26] MEDS ORDERED: ESCITALOPRAM OXALATE 10 MG TABLET ONE (09:18)
[2021-02-26] MEDS: PRENATAL VITAMINS W/ FOLIC ACID TABLET (FP) PO SCH (09:19)
[2021-02-26] MEDS: busPIRone HCL 10 MG TABLET (FP) PO SCH (09:19)
[2021-02-26] MEDS: ESCITALOPRAM OXALATE 20 MG TABLET PO SCH (09:19)
[2021-02-26 09:29] VITALS: BP 106/67; PULSE 72; TEMP 96.4
[2021-02-26] MEDS ORDERED: METHADONE HCL 10 MG TABLET (FOR DETOX USE ONLY) PO ONE (10:00)
[2021-02-27] MEDS ORDERED: METHADONE HCL 5 MG TABLET (FOR DETOX USE ONLY) PO ONE (06:00)
== END 2021-02-26 09:31 | disposition home or self-care (01) | DRG 773 ==
LOC: YASAS 19:04 → Y3N 21:59
PROVIDERS: ADMIT Allergy & Immunology; ATTEND Allergy & Immunology
PROC: HZ2ZZZZ Detoxification Services for Substance Abuse Treatment (ICD-10-PCS; principal; 2021-02-22)
DX: F11.23 Opioid dependence with withdrawal (principal); F13.230 Sedative, hypnotic or anxiolytic dependence with withdrawal, uncomplicated; F14.20 Cocaine dependence, uncomplicated; F17.210 Nicotine dependence, cigarettes, uncomplicated; F19.282 Other psychoactive substance dependence with psychoactive substance-induced sleep disorder; F19.24 Other psychoactive substance dependence with psychoactive substance-induced mood disorder; F41.9 Anxiety disorder, unspecified; G40.89 Other seizures; Z91.19 Patient's noncompliance with other medical treatment and regimen
CPT/HCPCS: 36415; 80053; 85027; 86780; C9803; J0735; U0003; U0005

== ENCOUNTER 2021-03-29 20:23 | Inpatient (IN) | payer OTHER ==
[2021-03-29 20:48] VITALS: BMI 26.4
[2021-03-29] MEDS ORDERED: MAG HYDROX/AL HYDROX/SIMETH 30 ML UNIT-DOSE CUP PO PRN (21:18)
[2021-03-29] MEDS ORDERED: MENTHOL/PHENOL 1 EACH UD MM PRN (21:18)
[2021-03-29] MEDS ORDERED: MAGNESIUM HYDROX 2400MG/30ML ORAL SUSPENSION 30 ML CUP PO PRN (21:18)
[2021-03-29] MEDS ORDERED: NICOTINE POLACRILEX 2 MG GUM BUC PRN (21:18)
[2021-03-29] MEDS ORDERED: BISMUTH SUBSALICYLATE 524 MG/30 ML PO PRN (21:18)
[2021-03-29] MEDS ORDERED: ACETAMINOPHEN 325 MG TABLET (FP) PO PRN ×2 (21:18)
[2021-03-29] MEDS ORDERED: MAGNESIUM CITRATE 300 ML BOTTLE PO PRN (21:18)
[2021-03-29] MEDS ORDERED: IBUPROFEN 400 MG TABLET (FP) PO PRN (21:18)
[2021-03-29] MEDS ORDERED: ONDANSETRON *ODT* 4 MG TABLET SL PRN (21:18)
[2021-03-29] MEDS ORDERED: MELATONIN 5 MG TABLETS PO SCH (22:00)
[2021-03-29] MEDS ORDERED: methaDONE HCL 10 MG TABLET (FOR DETOX USE ONLY) PO ONE (22:49)
[2021-03-29] MEDS ORDERED: cloNIDine HCL 0.1 MG TABLET PO PRN (22:49)
[2021-03-29] MEDS ORDERED: METHOCARBAMOL 500 MG TABLET PO PRN (22:49)
[2021-03-29] MEDS: diazePAM 5 MG TABLET PO SCH (23:48)
[2021-03-29] MEDS: THIAMINE HCL 100 MG TABLET (FP) PO SCH (23:50)
[2021-03-30] MEDS: diazePAM 5 MG TABLET PO SCH ×4 (06:01→23:39)
[2021-03-30] MEDS: diazePAM 5 MG TABLET PO PRN ×2 (08:05→14:54)
[2021-03-30] MEDS ORDERED: methaDONE HCL 10 MG TABLET (FOR DETOX USE ONLY) ONE (10:00)
[2021-03-30 10:09] LABS: HEMOGLOBIN 12.4 GM/dL (11.7-16.9); MCH 28.8 pg (25.7-33.7); MCHC 33.6 g/dl (32.0-35.9); MEAN CELL VOLUME 85.7 fl (80-96); MEAN PLT VOLUME 7.3 fl (7.5-11.1); PLATELET COUNT 259 10^3/uL (134-434); RBC 4.32 M/mm3 (4.00-5.60); RDW 14.4 % (11.9-15.9); WHITE BLOOD COUNT 7.5 K/mm3 (4.0-10.0)
[2021-03-30 10:26] LABS: ALBUMIN 3.5 g/dl (3.4-5.0); BLOOD UREA NITROGEN 8.4 mg/dL (7-18); CALCIUM 8.7 mg/dL (8.5-10.1)
[2021-03-30 10:29] LABS: CREATININE 0.9 mg/dL (0.55-1.3)
[2021-03-30 10:31] LABS: TOT PROT 6.4 g/dl (6.4-8.2)
[2021-03-30 10:34] LABS: BILIRUBIN,TOTAL 0.3 mg/dL (0.2-1)
[2021-03-30] MEDS: METHOCARBAMOL 500 MG TABLET PO PRN (10:39)
[2021-03-30] MEDS: PRENATAL VITAMINS W/ FOLIC ACID TABLET (FP) PO SCH (10:39)
[2021-03-30] MEDS: NICOTINE 21 MG/24 HOURS TOPICAL PATCH TD SCH (10:40)
[2021-03-30] MEDS ORDERED: MELATONIN 5 MG TABLETS PO SCH (22:00)
[2021-03-30] MEDS: traZODone HCL 50 MG TABLET (FP) PO SCH (23:38)
[2021-03-30] MEDS: THIAMINE HCL 100 MG TABLET (FP) PO SCH (23:38)
[2021-03-31] MEDS: diazePAM 5 MG TABLET PO SCH ×3 (05:56→22:04)
[2021-03-31] MEDS ORDERED: methaDONE HCL 10 MG TABLET (FOR DETOX USE ONLY) PO ONE (10:00)
[2021-03-31] MEDS: ESCITALOPRAM OXALATE 10 MG TABLET PO SCH (10:41)
[2021-03-31] MEDS: NICOTINE 21 MG/24 HOURS TOPICAL PATCH TD SCH (10:41)
[2021-03-31] MEDS: PRENATAL VITAMINS W/ FOLIC ACID TABLET (FP) PO SCH (10:41)
[2021-03-31] MEDS: diazePAM 5 MG TABLET PO PRN (10:41)
[2021-03-31] MEDS: METHOCARBAMOL 500 MG TABLET PO PRN (10:41)
[2021-03-31] MEDS: traZODone HCL 50 MG TABLET (FP) PO SCH (22:04)
[2021-03-31] MEDS: THIAMINE HCL 100 MG TABLET (FP) PO SCH (22:04)
[2021-04-01] MEDS: diazePAM 5 MG TABLET PO PRN ×2 (03:52→10:24)
[2021-04-01] MEDS ORDERED: diazePAM 5 MG TABLET PO SCH (06:00)
[2021-04-01 09:27] VITALS: BP 110/69; PULSE 60; TEMP 98.1
[2021-04-01] MEDS ORDERED: methaDONE HCL 10 MG TABLET (FOR DETOX USE ONLY) ONE (09:48)
[2021-04-01] MEDS: ESCITALOPRAM OXALATE 10 MG TABLET PO SCH (10:23)
[2021-04-01] MEDS: PRENATAL VITAMINS W/ FOLIC ACID TABLET (FP) PO SCH (10:24)
[2021-04-01] MEDS: NICOTINE 21 MG/24 HOURS TOPICAL PATCH TD SCH (10:25)
[2021-04-02] MEDS ORDERED: diazePAM 5 MG TABLET PO ONE (06:00)
[2021-04-02] MEDS ORDERED: methaDONE HCL 10 MG TABLET (FOR DETOX USE ONLY) PO ONE (10:00)
== END 2021-04-01 13:02 | disposition left against medical advice (07) | DRG 770 ==
LOC: YASAS 20:23 → Y3N 22:19
PROVIDERS: ADMIT Allergy & Immunology; ATTEND Allergy & Immunology
PROC: HZ2ZZZZ Detoxification Services for Substance Abuse Treatment (ICD-10-PCS; principal; 2021-03-29)
DX: F11.23 Opioid dependence with withdrawal (principal); F13.230 Sedative, hypnotic or anxiolytic dependence with withdrawal, uncomplicated; F14.20 Cocaine dependence, uncomplicated; F17.210 Nicotine dependence, cigarettes, uncomplicated; F19.282 Other psychoactive substance dependence with psychoactive substance-induced sleep disorder; F19.24 Other psychoactive substance dependence with psychoactive substance-induced mood disorder; F31.9 Bipolar disorder, unspecified; F41.9 Anxiety disorder, unspecified; G40.89 Other seizures
CPT/HCPCS: 36415; 80053; 85027; 86780